=== PATIENT | male | born 1995 | race Caucasian/White ===

== ENCOUNTER 2020-07-16 08:48 | Emergency (ER) | payer SELFPAY ==
[2020-07-16 08:51] VITALS: BP 155/115; PULSE 110; RESP 18; TEMP 36.6; O2SAT 97; BMI 19.0
--- NOTE | 2020-07-16 08:53 | ED_ITS ---
HPI - Psych General: Chief Complaint: Psychiatric Symptoms Stated Complaint: MHE Time Seen by Provider: 07/16/20 08:52 History of Present Illness: HPI Narrative: 24 yo male presents emergency room with EMS and [facility] [place]. Patient was behaving erratically running around in traffic he was licking vehicles he admits to having done meth within the last couple of days including last night. Both a police communications operator and the mother signed affidavits neither affidavit explicitly site any homicidal or suicidal ideation there is an offhand mention by the mother but patient denies any active suicidal homicidal ideation he is awake and alert he recalls most of what is happened he understands that the behavior is mediated by his drug use. He was running after people complaining that there were items missing or actually in his room. His mother's made a comment in her affidavit about him carrying some knives please officer did not make that comment either in person or on his affidavit. Patient repeatedly denies any suicidal or homicidal ideation. His mother and the police allude to some hallucinations he had while he was under the influence of methamphetamines he is not having any of those hallucinations now in the emergency room. MD complaint: altered mental status (Secondary to methamphetamine use) Onset (ago): hour(s) Duration: intermittent History of same: Yes Relieving factors: none Exacerbating factors: none Context: recent drug abuse Associated psychiatric symptoms: racing thoughts, auditory hallucinations and visual hallucinations Associated symptoms: Reports auditory hallucinations (Resolved) and visual hallucinations (Resolved); Deny homicidal ideation or suicidal ideation Treatments prior to arrival: none Review of Systems Const: Denies: fever(s), chills, body aches, change in appetite, fatigue or malaise ENMT: Denies: throat pain, ear or mastoid pain, nasal discharge or nasal congestion Card: Denies: chest pain, edema, dyspnea on exertion or orthopnea Resp: Denies: dyspnea, productive cough or non-productive cough GI: Denies: abdominal pain, nausea, vomiting, hematemesis, coffee ground emesis, diarrhea, constipation, bloating, hematochezia or melena : Denies: flank pain, dysuria, urinary frequency or urinary urgency Skin/Breast: Denies: rash or pruritus Psych: Reports: visual hallucinations (Resolved) and auditory hallucinations (Resolved); Denies: suicidal ideation or homicidal ideation [facility] ED PFSH: Medical History Anxiety, generalized Epilepsy Seasonal allergic rhinitis due to pollen Surgical History Hx of tonsillectomy Family History Father Seizure disorder Hypertension Denies family history of Cancer Social History Smoking and tobacco status: current some day smoker Second hand smoke exposure: Yes Smoking risk assessment/counseling performed?: Yes Alcohol intake: current Alcohol intake frequency: holidays/special occasions only Desire information about alcohol rehabilitation?: No Counseling given: No Substance/Drug Use: current Substance/Drug use type: Amphetamines Desire information about substance/drug rehabilitation?: No Counseling given: No Adopted: No Caregiver/support person: No Lives independently: Yes Household members: family Housing: House Marital status: Single Number of children: 0 service: No Current occupational status: unemployed History of recent travel: No Current gender identity: Male Physical Exam Const: COMMON NORMALS: no acute distress GENERAL APPEARANCE: cooperative and comfortable ORIENTATION/CONSCIOUSNESS: Yes awake, Yes oriented to person, Yes oriented to place and Yes oriented to time HENMT: COMMON NORMALS: normocephalic, atraumatic and hearing grossly normal bilaterally HEAD & SCALP: normocephalic and atraumatic Eye: COMMON NORMALS: Equal, round and reactive pupils present, EOMs intact bilaterally, conjunctivae normal and no scleral icterus CONJUNCTIVA: Yes conjunctivae normal PUPIL: Yes Equal, round and reactive pupils present Neck/C-Spine: COMMON NORMALS: full ROM, no lymphadenopathy, supple and no JVD Lymph: LYMPHATIC: no lymphadenopathy noted and no lymphedema noted Resp: COMMON NORMALS: normal respiratory effort, No retractions, No use of accessory muscles and clear to auscultation bilaterally AUSCULTATION: clear to auscultation bilaterally Cardio: COMMON NORMALS: no JVD, regular rate, regular rhythm and No murmurs present (Cardio) RATE: regular rate RHYTHM: regular rhythm GI: COMMON NORMALS: Soft to palpation and No hepatosplenomegaly present AUSCULTATION: Yes normoactive bowel sounds PALPATION: Yes Soft to palpation, No Tenderness to palpation present (GI), No Guarding due to palpation present (GI) and Yes No hepatosplenomegaly present Extremity: COMMON NORMALS: normal to inspection, capillary refill normal, no clubbing, cyanosis or edema, no calf tenderness and no pedal edema Neuro: SENSORIUM/ORIENTATION: Yes oriented to person, Yes oriented to place and Yes oriented to time Skin: COMMON NORMALS: no rashes or lesions noted GENERAL SKIN EXAM: no rashes or lesions noted MDM - Psych MDM Narrative: Medical decision making narrative: Urine drug screen shows multiple substances of abuse present in urine. At this time the patient has no suicidal or homicidal ideation is behaving rationally and his hallucinations and other behavioral issues are driven by his drug use there is no benefit to placing him in the neuropsychiatric unit discussed Dr. naik, will discharge home. Dr. Naik came to see the patient in the emergency room see his consultation note he agrees with discharge home Lab Data: Labs: Lab Results 07/16/20 07/16/20 07/16/20 Range/Units 09:19 09:19 09:30 WBC 9.8 (4.0-10.0) 10^3/ uL RBC 5.50 H (4.1-5.3) 10^6/u L Hgb 16.3 (11.7-16.6) g/dL Hct 47.4 (42.0-52.0) % MCV 86.2 (80-94) fL MCH 29.6 (28.0-34.0) pg MCHC 34.4 (30.0-36.0) g/dL RDW 11.4 L (12.1-15.1) % Plt Count 296 (130-400) 10^3/c mm MPV 9.4 (7.4-10.4) fL Neut % (Auto) 67.8 % Lymph % (Auto) 22.9 % [place] % (Auto) 7.6 % Eos % (Auto) 1.0 % Baso % (Auto) 0.5 % Neut # (Auto) 6.63 (1.8-7.7) 10^3/u L Lymph # (Auto) 2.2 (0.8-4.8) 10^3/u L [place] # (Auto) 0.7 (0.2-0.9) 10^3/u L Eos # (Auto) 0.1 (0.0-0.8) 10^3/u L Baso # (Auto) 0.1 (0.0-0.1) 10^3/u L Nucleated RBC % (a uto) 0 % Nucleated RBCs # 0.0 /100WBC Sodium (136-145) mmol/L Potassium (3.5-5.1) mmol/L Chloride (98-107) mmol/L Carbon Dioxide (22-29) mmol/L Anion Gap (5-19) BUN (6-20) mg/dL Creatinine (0.7-1.2) mg/dL GFR Calculation (90-130) mL/min Glucose (65-115) mg/dL Calculated Osmolal ity (285-295) mOsm/k g Calcium (8.5-10.5) mg/dL Total Bilirubin (0.15-1.2) mg/dL AST (0-40) U/L ALT (0-41) U/L Alkaline Phosphata se (40-130) IU/L Total Protein (6.6-8.7) g/dL Albumin (3.5-5.2) g/dL Globulin (1.3-4.6) g/dL Urine Color Yellow (Yellow) Urine Appearance Sl hazy (CLEAR) Urine pH 5.0 (5-7) Ur Specific Gravit y 1.020 (1.005-1.030) Urine Protein 3+ H (Negative) Urine Glucose (UA) Norm (Normal) Urine Ketones 1+ H (Negative) Urine Blood Neg (Negative) Urine Nitrate Negative (Negative) Urine Bilirubin Neg (NEGATIVE) Urine Urobilinogen Norm (Negative) mg/dL Ur Leukocyte Genet ase Negative (Negative) Urine RBC 0-4 H (0-2) /hpf Urine WBC 0-4 H (0-5) /hpf Ur Squamous Epith Cells 0-4 H (0-5) Amorphous Sediment Not Reportable Urine Bacteria 1+ H (NONE) Hyaline Casts 5-10 H Urine Mucus 3+ Salicylates (3-10) mg/dL Urine Opiates Scre en Negative (Negative) ng/mL Acetaminophen (10-30) ug/mL Ur Barbiturates Sc reen Negative (Negative) ng/mL Ur Phencyclidine S crn Negative (Negative) ng/mL Ur Amphetamines Sc reen Positive H (Negative) ng/mL U Benzodiazepines Scrn Positive H (Negative) ng/mL Urine Cocaine Scre en Negative (Negative) ng/mL U Marijuana (THC) Screen Positive H (Negative) ng/mL Ethyl Alcohol (0-10) mg/dL 07/16/20 Range/Units 09:30 WBC (4.0-10.0) 10^3/ uL RBC (4.1-5.3) 10^6/u L Hgb (11.7-16.6) g/dL Hct (42.0-52.0) % MCV (80-94) fL MCH (28.0-34.0) pg MCHC (30.0-36.0) g/dL RDW (12.1-15.1) % Plt Count (130-400) 10^3/c mm MPV (7.4-10.4) fL Neut % (Auto) % Lymph % (Auto) % [place] % (Auto) % Eos % (Auto) % Baso % (Auto) % Neut # (Auto) (1.8-7.7) 10^3/u L Lymph # (Auto) (0.8-4.8) 10^3/u L [place] # (Auto) (0.2-0.9) 10^3/u L Eos # (Auto) (0.0-0.8) 10^3/u L Baso # (Auto) (0.0-0.1) 10^3/u L Nucleated RBC % (a uto) % Nucleated RBCs # /100WBC Sodium 141 (136-145) mmol/L Potassium 3.9 (3.5-5.1) mmol/L Chloride 98 (98-107) mmol/L Carbon Dioxide 25 (22-29) mmol/L Anion Gap 21.9 H (5-19) BUN 10 (6-20) mg/dL Creatinine 0.8 (0.7-1.2) mg/dL GFR Calculation 119.8 (90-130) mL/min Glucose 98 (65-115) mg/dL Calculated Osmolal ity 288 (285-295) mOsm/k g Calcium 9.9 (8.5-10.5) mg/dL Total Bilirubin 0.9 (0.15-1.2) mg/dL AST 17 (0-40) U/L ALT 13 (0-41) U/L Alkaline Phosphata se 70 (40-130) IU/L Total Protein 8.2 (6.6-8.7) g/dL Albumin 5.4 H (3.5-5.2) g/dL Globulin 2.8 (1.3-4.6) g/dL Urine Color (Yellow) Urine Appearance (CLEAR) Urine pH (5-7) Ur Specific Gravit y (1.005-1.030) Urine Protein (Negative) Urine Glucose (UA) (Normal) Urine Ketones (Negative) Urine Blood (Negative) Urine Nitrate (Negative) Urine Bilirubin (NEGATIVE) Urine Urobilinogen (Negative) mg/dL Ur Leukocyte Genet ase (Negative) Urine RBC (0-2) /hpf Urine WBC (0-5) /hpf Ur Squamous Epith Cells (0-5) Amorphous Sediment Urine Bacteria (NONE) Hyaline Casts Urine Mucus Salicylates < 0.3 L (3-10) mg/dL Urine Opiates Scre en (Negative) ng/mL Acetaminophen < 5.0 L (10-30) ug/mL Ur Barbiturates Sc reen (Negative) ng/mL Ur Phencyclidine S crn (Negative) ng/mL Ur Amphetamines Sc reen (Negative) ng/mL U Benzodiazepines Scrn (Negative) ng/mL Urine Cocaine Scre en (Negative) ng/mL U Marijuana (THC) Screen (Negative) ng/mL Ethyl Alcohol < 10 (0-10) mg/dL Discharge Plan Discharge Patient Disposition: Home Clinical Impression: Drug-induced psychotic disorder Condition: Stable Prescriptions: No Action levetiracetam [Keppra] 1,000 mg tablet 500 mg PO Q12H Qty: 30 RF: 2 clonazepam [Klonopin] 1 mg tablet 1 mg PO BID Qty: 60 RF: 2 Tylenol Extra Strength 500 mg Tablet 1,000 mg PO PRN RF: 0 Advil 200 mg Tablet 200 - 400 mg PO PRN RF: 0 Discharge Orders: Discharge Order (Routine); Ordered 07/16/20 Ordered By: Koko Armijo Referrals: Neena Pablo FNP [Primary Care Provider] - Discharge Date/Time: 07/16/20 11:33 Coding Level of Care Code ED Polysom Tech for Chg Fwd Exam Comprehensive
[2020-07-16 09:03] VITALS: O2SAT 97
[2020-07-16 09:37] LABS: Basophils # 0.1 10^3/uL (0.0-0.1); Basophils % 0.5 %; Eosinophils # 0.1 10^3/uL (0.0-0.8); Hematocrit 47.4 % (42.0-52.0); Hemoglobin 16.3 g/dL (11.7-16.6); Lymphocytes # 2.2 10^3/uL (0.8-4.8); Lymphocytes % 22.9 %; Mean Corpuscular HGB Conc 34.4 g/dL (30.0-36.0); Mean Corpuscular Hemoglobin 29.6 pg (28.0-34.0); Mean Corpuscular Volume 86.2 fL (80-94); Mean Platelet Volume 9.4 fL (7.4-10.4); Monocytes # 0.7 10^3/uL (0.2-0.9); Monocytes % 7.6 %; Neutrophils # 6.63 10^3/uL (1.8-7.7); Neutrophils % 67.8 %; Nucleated Red Blood Cells % 0 %; Platelet Count 296 10^3/cmm (130-400); Red Cell Distribution Width 11.4 % (12.1-15.1); White Blood Count 9.8 10^3/uL (4.0-10.0)
[2020-07-16 09:40] LABS: Bilirubin Urine Neg (NEGATIVE); Blood Urine Neg (Negative); Glucose Urine UA Norm (Normal); Ketones Urine 1+ (Negative); Leukocyte Esterase Urine Negative (Negative); Nitrate Urine Negative (Negative); Protein Urine 3+ (Negative); Urine Appearance SL Hazy (CLEAR); Urine Color Yellow (Yellow); Urobilinogen Urine Norm (Negative)
[2020-07-16 09:41] LABS: Add Urine Culture? No; Add Urine Microscopic? YES; Bacteria Urine 1+; Mucus Urine 3+; RBC Urine 0-4 /hpf (0-2); Squamous Epithelial Cell Urine 0-4 (0-5); WBC Urine 0-4 /hpf (0-5)
[2020-07-16 09:43] LABS: Amphetamines Screen Urine Positive (Negative); Barbiturates Screen Urine Negative (Negative); Benzodiazepines Screen Urine Positive (Negative); Cocaine Screen Urine Negative (Negative); Opiate Screen Urine Negative (Negative); PCP Screen Urine Negative (Negative); THC Screen Urine Positive (Negative)
[2020-07-16 10:05] LABS: Alanine Aminotransferase 13 U/L (0-41); Albumin Level 5.4 g/dL (3.5-5.2); Alkaline Phosphatase 70 IU/L (40-130); Anion Gap 21.9 (5-19); Aspartate Amino Transferase 17 U/L (0-40); Blood Urea Nitrogen 10 mg/dL (6-20); Calcium 9.9 mg/dL (8.5-10.5); Carbon Dioxide 25 mmol/L (22-29); Chloride 98 mmol/L (98-107); Globulin 2.8 g/dL (1.3-4.6); Glomerular Filtration Rate 119.8 mL/min (90-130); Glucose 98 mg/dL (65-115); Osmolality Calculated 288 mOsm/kg (285-295); Potassium 3.9 mmol/L (3.5-5.1); Sodium 141 mmol/L (136-145); Total Bilirubin 0.9 mg/dL (0.15-1.2); Total Protein 8.2 g/dL (6.6-8.7)
[2020-07-16 10:07] LABS: Acetaminophen < 5.0 ug/mL (10-30); Alcohol Level < 10 mg/dL (0-10); Salicylate < 0.3 mg/dL (3-10)
--- NOTE | 2020-07-16 11:07 | PC.NURSE ---
psychiatrist (Dr. Flores) in room to assess pt at this time. pt's behavior remains calm and cooperative at this time
== END 2020-07-16 11:33 | disposition home or self-care (01) ==
PROVIDERS: Emergency Provider Family Medicine; PCP Nurse Practitioner Family
DX: F19.959 Other psychoactive substance use, unspecified with psychoactive substance-induced psychotic disorder, unspecified (principal); F17.210 Nicotine dependence, cigarettes, uncomplicated
CPT/HCPCS: 12345; 36415; 80053; 80306; 80307; 81001; 85025; 99284

== ENCOUNTER → 2020-07-23 13:16 | Outpatient (BNVA) | payer SELFPAY | PROVIDERS: Family Provider Nurse Practitioner Family; PCP Nurse Practitioner Family; Visit Provider Specialist | DX: F41.1 Generalized anxiety disorder (principal); G40.309 Generalized idiopathic epilepsy and epileptic syndromes, not intractable, without status epilepticus; F19.10 Other psychoactive substance abuse, uncomplicated; F17.210 Nicotine dependence, cigarettes, uncomplicated | CPT/HCPCS: 99215 ==

== ENCOUNTER → 2020-10-01 15:10 | Outpatient (BNVA) | payer SELFPAY | PROVIDERS: Family Provider Nurse Practitioner Family; PCP Nurse Practitioner Family; Visit Provider Specialist | DX: R56.9 Unspecified convulsions (principal); F41.9 Anxiety disorder, unspecified; F17.210 Nicotine dependence, cigarettes, uncomplicated | CPT/HCPCS: 99213 ==

== ENCOUNTER 2020-11-26 16:24 | Inpatient (IN) | payer SELFPAY ==
[2020-11-26 16:28] VITALS: BP 168/122; PULSE 122; RESP 18; TEMP 36.4; O2SAT 98; BMI 21.7
[2020-11-26 17:28] LABS: Basophils % 0.3 %; Eosinophils % 0.3 %; Hematocrit 49.4 % (42.0-52.0); Hemoglobin 16.5 g/dL (11.7-16.6); Lymphocytes # 1.5 10^3/uL (0.8-4.8); Lymphocytes % 17.6 %; Mean Corpuscular HGB Conc 33.4 g/dL (30.0-36.0); Mean Corpuscular Hemoglobin 30.4 pg (28.0-34.0); Mean Corpuscular Volume 91.1 fL (80-94); Mean Platelet Volume 9.3 fL (7.4-10.4); Monocytes # 0.7 10^3/uL (0.2-0.9); Monocytes % 7.5 %; Neutrophils # 6.48 10^3/uL (1.8-7.7); Neutrophils % 74.1 %; Nucleated Red Blood Cells % 0 %; Platelet Count 258 10^3/cmm (130-400); Red Blood Count 5.42 10^6/uL (4.1-5.3); Red Cell Distribution Width 12.1 % (12.1-15.1); White Blood Count 8.8 10^3/uL (4.0-10.0)
[2020-11-26 17:37] LABS: Add Urine Microscopic? NO
[2020-11-26 17:41] LABS: Bilirubin Urine Neg (Negative); Blood Urine Neg (Negative); Glucose Urine UA Norm (Normal); Ketones Urine Negative (Negative); Leukocyte Esterase Urine Negative (Negative); Nitrate Urine Negative (Negative); Protein Urine Neg (Negative); Sulfosalicylic Acid Urine Negative (Negative); Urine Appearance Clear (CLEAR); Urine Color Straw (Yellow); Urobilinogen Urine Norm (Negative); pH Urine 8 (5-7)
[2020-11-26 17:48] LABS: Amphetamines Screen Urine Positive (Negative); Barbiturates Screen Urine Negative (Negative); Benzodiazepines Screen Urine Positive (Negative); Cocaine Screen Urine Negative (Negative); Opiate Screen Urine Positive (Negative); PCP Screen Urine Negative (Negative); THC Screen Urine Positive (Negative)
[2020-11-26] MEDS: LORazepam 2 mg Tablet PO (18:03)
[2020-11-26 18:05] LABS: Acetaminophen < 5.0 ug/mL (10-30); Alanine Aminotransferase 14 U/L (0-41); Alcohol Level < 10 mg/dL (0-10); Alkaline Phosphatase 61 IU/L (40-130); Anion Gap 14.2 (5-19); Aspartate Amino Transferase 20 U/L (0-40); Blood Urea Nitrogen 5 mg/dL (6-20); Calcium 10.8 mg/dL (8.5-10.5); Carbon Dioxide 30 mmol/L (22-29); Chloride 99 mmol/L (98-107); Globulin 2.4 g/dL (1.3-4.6); Glomerular Filtration Rate 138.6 mL/min (90-130); Glucose 110 mg/dL (65-115); Osmolality Calculated 286 mOsm/kg (285-295); Potassium 4.2 mmol/L (3.5-5.1); Salicylate < 0.3 mg/dL (3-10); Sodium 139 mmol/L (136-145); Total Bilirubin 0.5 mg/dL (0.15-1.2); Total Protein 7.4 g/dL (6.6-8.7)
[2020-11-26 18:15] VITALS: BP 153/95; PULSE 116; RESP 18; O2SAT 96
--- NOTE | 2020-11-26 18:22 | PC.NURSE ---
Does not need a 1:1 sitter
[2020-11-26 18:45] VITALS: BP 124/89; PULSE 103; RESP 20; TEMP 36.3; O2SAT 97
--- NOTE | 2020-11-26 21:23 | ED_ITS ---
HPI - Psych General: Chief Complaint: Psychiatric Symptoms Stated Complaint: wants to detox Time Seen by Provider: 11/26/20 16:28 Source: patient and family Mode of arrival: ambulatory History of Present Illness: HPI Narrative: The patient is a 25-year-old male who states that he has been abusing illicit drugs for many years. He uses methamphetamines, abuses prescription opioids. He is feeling bad about it, is tearful and says he would like some help with assistance to quitting. His mother also called 9 said that the patient has auditory hallucinations she says even when he is not using drugs. He denies SI or HI. complaint: feels depressed Duration: intermittent Exacerbating factors: drug use Context: recent drug abuse Associated psychiatric symptoms: auditory hallucinations Associated symptoms: Reports auditory hallucinations and depression; Deny visual hallucinations, delusions, homicidal ideation, suicidal ideation or racing thoughts Treatments prior to arrival: none Review of Systems General: Reports: 10 or more systems reviewed and unremarkable except in HPI and below Const: Denies: fever(s), chills or body aches Eyes: Denies: change in vision or blurry vision ENMT: Denies: throat pain, enlarged tonsils, odynophagia, hoarseness, mouth pain or swelling of lips/tongue Card: Denies: palpitations, irregular heart rhythm, edema or swelling of feet/ankles Resp: Denies: dyspnea, productive cough or non-productive cough GI: Denies: abdominal pain, nausea or vomiting : Denies: flank pain, dysuria, urinary frequency, urinary urgency or urinary hesitancy Musc: Denies: neck pain, back pain or extremity swelling Skin/Breast: Denies: rash, pruritus or erythema Neuro: Denies: headache(s), numbness in extremities or weakness in extremities Psych: Reports: depression and auditory hallucinations; Denies: visual hallucinations, suicidal ideation or homicidal ideation Endo: Denies: polyuria, polydipsia or tired all the time PFSH ED PFSH: Medical History (Updated 11/26/20 @ 21:39 by Trino Guillaume MD, [facility] [place] [facility] [place] Anxiety, generalized Epilepsy Seasonal allergic rhinitis due to pollen Surgical History (Reviewed 11/26/20 @ 21:35 by Trino Guillaume MD, [facility] [place] [facility] [place] Hx of tonsillectomy Family History (Reviewed 11/26/20 @ 21:35 by Trino Guillaume MD, [facility] [place] [facility] [place] Father Seizure disorder Hypertension Denies family history of Cancer Social History (Reviewed 11/26/20 @ 21:35 by Trino Guillaume MD, [facility] [place] [facility] [place] Smoking and tobacco status: current some day smoker Second hand smoke exposure: Yes Smoking risk assessment/counseling performed?: Yes Alcohol intake: current Alcohol intake frequency: holidays/special occasions only Desire information about alcohol rehabilitation?: No Counseling given: No Desire information about substance/drug rehabilitation?: No Counseling given: No Adopted: No Caregiver/support person: No Lives independently: Yes Household members: family Housing: House Marital status: Single Number of children: 0 service: No Current occupational status: unemployed History of recent travel: No Current gender identity: Male Physical Exam Const: COMMON NORMALS: no acute distress, average body habitus, patient oriented x3, no limitations, healthy appearing, alert and well nourished HENMT: COMMON NORMALS: normocephalic, atraumatic and moist oral mucous membranes HEAD & SCALP: normocephalic and atraumatic Neck/C-Spine: COMMON NORMALS: no meningeal signs and no JVD Resp: COMMON NORMALS: normal respiratory effort, No retractions, No use of accessory muscles, clear to auscultation bilaterally and percussion normal AUSCULTATION: clear to auscultation bilaterally PERCUSSION: percussion normal Cardio: COMMON NORMALS: no JVD, regular rate, regular rhythm, S1 normal heart sound present, S2 normal heart sound present, No gallops present (Cardio), No clicks present (Cardio), No murmurs present (Cardio), No rub (Cardio) and Peripheral pulses 2+ throughout RATE: regular rate RHYTHM: regular rhythm HEART SOUNDS: S1 normal heart sound present and S2 normal heart sound present PERIPHERAL PULSES: Peripheral pulses 2+ throughout GI: COMMON NORMALS: Normal to inspection, nondistended, normoactive bowel sounds present, Soft to palpation, non-tender, No hepatosplenomegaly present, no masses and no bruits PALPATION: Yes Soft to palpation and Yes No hepatosplenomegaly present Extremity: COMMON NORMALS: normal to inspection, full ROM, capillary refill normal, no calf tenderness and no pedal edema Neuro: COMMON NORMALS: patient oriented x3 SENSORIUM/ORIENTATION: Yes alert MENINGEAL SIGNS: Yes no meningeal signs Psych: COMMON NORMALS: Normal thought process present, speech normal, denies homicidal ideation and denies suicidal ideation SPEECH: Yes normal speech MOOD & AFFECT: Yes depressed mood and Yes tearful THOUGHT PROCESS: Normal thought process present THOUGHT CONTENT: No delusions Skin: COMMON NORMALS: no rashes or lesions noted, no wounds, turgor normal, no jaundice, no petechiae and no mottling GENERAL SKIN EXAM: no rashes or lesions noted and turgor normal MDM - Psych MDM Narrative: Medical decision making narrative: 25-year-old male with a history of polysubstance abuse and has some auditory hallucinations. He would like assistance to help with, however because of his hallucinations he is admitted to the neuropsychiatric unit for further evaluation and management. Medical Records: Attestation: I reviewed the patient's medical records. Lab Data: Attestation: I reviewed the patient's lab results. Labs: Lab Results 11/26/20 11/26/20 11/26/20 Range/Units 17:19 17:19 17:26 WBC 8.8 (4.0-10.0) 10^3/ uL RBC 5.42 H (4.1-5.3) 10^6/u L Hgb 16.5 (11.7-16.6) g/dL Hct 49.4 (42.0-52.0) % MCV 91.1 (80-94) fL MCH 30.4 (28.0-34.0) pg MCHC 33.4 (30.0-36.0) g/dL RDW 12.1 (12.1-15.1) % Plt Count 258 (130-400) 10^3/c mm MPV 9.3 (7.4-10.4) fL Neut % (Auto) 74.1 % Lymph % (Auto) 17.6 % [place] % (Auto) 7.5 % Eos % (Auto) 0.3 % Baso % (Auto) 0.3 % Neut # (Auto) 6.48 (1.8-7.7) 10^3/u L Lymph # (Auto) 1.5 (0.8-4.8) 10^3/u L [place] # (Auto) 0.7 (0.2-0.9) 10^3/u L Eos # (Auto) 0.0 (0.0-0.8) 10^3/u L Baso # (Auto) 0.0 (0.0-0.1) 10^3/u L Nucleated RBC % (a uto) 0 % Nucleated RBCs # 0.0 /100WBC Sodium 139 (136-145) mmol/L Potassium 4.2 (3.5-5.1) mmol/L Chloride 99 (98-107) mmol/L Carbon Dioxide 30 H (22-29) mmol/L Anion Gap 14.2 (5-19) BUN 5 L (6-20) mg/dL Creatinine 0.7 (0.7-1.2) mg/dL GFR Calculation 138.6 H (90-130) mL/min Glucose 110 (65-115) mg/dL Calculated Osmolal ity 286 (285-295) mOsm/k g Calcium 10.8 H (8.5-10.5) mg/dL Total Bilirubin 0.5 (0.15-1.2) mg/dL AST 20 (0-40) U/L ALT 14 (0-41) U/L Alkaline Phosphata se 61 (40-130) IU/L Total Protein 7.4 (6.6-8.7) g/dL Albumin 5.0 (3.5-5.2) g/dL Globulin 2.4 (1.3-4.6) g/dL Urine Color Straw (Yellow) Urine Appearance Clear (CLEAR) Urine pH 8 H (5-7) Ur Specific Gravit y 1.010 (1.005-1.030) Urine Protein Neg (Negative) Urine Glucose (UA) Norm (Normal) Urine Ketones Negative (Negative) Urine Blood Neg (Negative) Urine Nitrate Negative (Negative) Urine Bilirubin Neg (Negative) Prot Sulfosalicyli c Acd Negative (Negative) Urine Urobilinogen Norm (Negative) mg/dL Ur Leukocyte Genet ase Negative (Negative) Salicylates < 0.3 L (3-10) mg/dL Urine Opiates Scre en (Negative) ng/mL Acetaminophen < 5.0 L (10-30) ug/mL Ur Barbiturates Sc reen (Negative) ng/mL Ur Phencyclidine S crn (Negative) ng/mL Ur Amphetamines Sc reen (Negative) ng/mL U Benzodiazepines Scrn (Negative) ng/mL Urine Cocaine Scre en (Negative) ng/mL U Marijuana (THC) Screen (Negative) ng/mL Ethyl Alcohol < 10 (0-10) mg/dL 11/26/20 Range/Units 17:26 WBC (4.0-10.0) 10^3/ uL RBC (4.1-5.3) 10^6/u L Hgb (11.7-16.6) g/dL Hct (42.0-52.0) % MCV (80-94) fL MCH (28.0-34.0) pg MCHC (30.0-36.0) g/dL RDW (12.1-15.1) % Plt Count (130-400) 10^3/c mm MPV (7.4-10.4) fL Neut % (Auto) % Lymph % (Auto) % [place] % (Auto) % Eos % (Auto) % Baso % (Auto) % Neut # (Auto) (1.8-7.7) 10^3/u L Lymph # (Auto) (0.8-4.8) 10^3/u L [place] # (Auto) (0.2-0.9) 10^3/u L Eos # (Auto) (0.0-0.8) 10^3/u L Baso # (Auto) (0.0-0.1) 10^3/u L Nucleated RBC % (a uto) % Nucleated RBCs # /100WBC Sodium (136-145) mmol/L Potassium (3.5-5.1) mmol/L Chloride (98-107) mmol/L Carbon Dioxide (22-29) mmol/L Anion Gap (5-19) BUN (6-20) mg/dL Creatinine (0.7-1.2) mg/dL GFR Calculation (90-130) mL/min Glucose (65-115) mg/dL Calculated Osmolal ity (285-295) mOsm/k g Calcium (8.5-10.5) mg/dL Total Bilirubin (0.15-1.2) mg/dL AST (0-40) U/L ALT (0-41) U/L Alkaline Phosphata se (40-130) IU/L Total Protein (6.6-8.7) g/dL Albumin (3.5-5.2) g/dL Globulin (1.3-4.6) g/dL Urine Color (Yellow) Urine Appearance (CLEAR) Urine pH (5-7) Ur Specific Gravit y (1.005-1.030) Urine Protein (Negative) Urine Glucose (UA) (Normal) Urine Ketones (Negative) Urine Blood (Negative) Urine Nitrate (Negative) Urine Bilirubin (Negative) Prot Sulfosalicyli c Acd (Negative) Urine Urobilinogen (Negative) mg/dL Ur Leukocyte Genet ase (Negative) Salicylates (3-10) mg/dL Urine Opiates Scre en Positive H (Negative) ng/mL Acetaminophen (10-30) ug/mL Ur Barbiturates Sc reen Negative (Negative) ng/mL Ur Phencyclidine S crn Negative (Negative) ng/mL Ur Amphetamines Sc reen Positive H (Negative) ng/mL U Benzodiazepines Scrn Positive H (Negative) ng/mL Urine Cocaine Scre en Negative (Negative) ng/mL U Marijuana (THC) Screen Positive H (Negative) ng/mL Ethyl Alcohol (0-10) mg/dL Discharge Plan Discharge Patient Disposition: Admitted As Inpatient Admit Provider: Bassam Zaragoza Clinical Impression: Drug-induced psychotic disorder, Polysubstance abuse Condition: Stable Coding Level of Care Code ED Homemaker Companion for Munira Deal Exam Problem Focused
[2020-11-26 21:27] VITALS: BP 124/89; PULSE 103; RESP 20; TEMP 36.3; O2SAT 97
[2020-11-26] MEDS: hyDROXYzine 25 mg Capsule 50 MG PO (21:55)
[2020-11-26] MEDS: trazodone 50 mg Tablet PO (21:55)
[2020-11-26] MEDS: OLANZapine 5 mg ODT PO (22:30)
--- NOTE | 2020-11-26 22:35 | PC.NURSE ---
patient is pacing halls and beginning to get more agitated / anxious. Zyprexa 5 mg given.
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
[2020-11-26 23:47] VITALS: BP 124/89; PULSE 103; RESP 20; TEMP 36.3; O2SAT 97
[2020-11-27] MEDS: haloperidol 5 mg Tablet PO (01:05)
--- NOTE | 2020-11-27 01:06 | PC.NURSE ---
Patient continues to feel very anxious / agitated. Pacing gordon from dayroom, to nurses station to patient room, to hallway. continues to be somewhat disoriented at times confused. Haldol 5mg given.
[2020-11-27 01:35] LABS: Valproic Acid Level 94.9 ug/mL (50-100)
[2020-11-27 06:00] VITALS: RESP 18; TEMP 36.3
[2020-11-27] MEDS: citalopram 20 mg Tablet PO (08:38)
[2020-11-27] MEDS: ALPRAZolam 0.25 mg Tablet PO ×3 (08:38→21:03)
[2020-11-27] MEDS: fluoxetine 20 mg Capsule PO (13:52)
[2020-11-27 14:00] VITALS: BP 126/86; PULSE 107; RESP 20; TEMP 36.2; O2SAT 96
[2020-11-27] MEDS: divalproex DR 500 mg Tablet PO ×2 (14:45→21:04)
--- NOTE | 2020-11-27 15:16 | P.HP_ITS ---
Providers/Chief Complaint Admitting Physician: Bassam Zaragoza MD Chief Complaint: SI HPI NPU History of Present Illness José Manuel Nolasco is a 25 year old male who presented to the emergency department with the following report: Chief Complaint: Psychiatric Symptoms Stated Complaint: wants to detox Time Seen by Provider: 11/26/20 16:28 Source: patient and family Mode of arrival: ambulatory History of Present Illness: HPI Narrative: The patient is a 25-year-old male who states that he has been abusing illicit drugs for many years. He uses methamphetamines, abuses prescription opioids. He is feeling bad about it, is tearful and says he would like some help with assistance to quitting. His mother also called 9 said that the patient has auditory hallucinations she says even when he is not using drugs. He denies SI or HI. MD complaint: feels depressed Duration: intermittent Exacerbating factors: drug use Context: recent drug abuse Associated psychiatric symptoms: auditory hallucinations Associated symptoms: Reports auditory hallucinations and depression; Deny visual hallucinations, delusions, homicidal ideation, suicidal ideation or racing thoughts Treatments prior to arrival: none. He was admitted to the neuropsychiatric unit for definitive treatment of those issues. José Manuel presents today reporting that he has 1 previous hospitalization in [place] some years ago and reports that he went to follow-up outpatient maybe 1 or 2 times before leaving the area. He reports having 1 suicide attempt in his past attempting to slit his wrists. He reports he smokes about 1/2 to 1 pack of cigarettes a day, does not drink alcohol, has marijuana sometimes daily and struggles with methamphetamine. He reports he went to a makeshift rehab where a family member/family friend took him in in a remote area and they assisted him in getting clean by not allowing him to leave and providing for him until he got through the rough part. He is not sure whether he had a DUI. He reports he presents off of his medication and wanting to get clean and sober. He reports he has had suicidal thoughts recently and struggles with depression and anxiety. He reports sometimes getting Xanax to help with the anxiety. We discussed concerns about Xanax related to recovery. We discussed the risk benefits and alternatives of restarting Zyprexa which he is certain he was taken before with success as well as starting Prozac as an antidepressant/anxiety medication long-term and he understood and agreed to proceed as is documented in this note. Psychiatric history: As above. Substance abuse history: As above. Family history: He endorses mental health issues on both sides of the family as well as addiction up suddenly but denies any suicide attempts or completions in his family. Developmental history: He denies any issues with his , his mother's with him or delivery. To walk and talk and met his developmental milestones on time, he did not need speech therapy, emotional support or special education classes but did report he did have some assistance with reading after he went off to school. Psychosocial history: He reports his parents were together when he was born and he has 2 younger sisters who are a product of that same union. Neither of his parents have ob struction. He reports his childhood was easy and is on time and sports. He denies emotional, physical or sexual abuse. Highest grade he attained in school was the 11th grade and he never got his GED. He endorses being a heterosexual longest relationship being 3 years. He is , he is never had biological children, is never been in the but does endorse being a Confucianism. 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 He was a current lives in a house with his mom and one of them. Legal history: He reports being [facility] about 3 times when is lying about a week. Medical history: He reports a history of epilepsy and has been seen by Dr. Maida Green. Meds NPU Home Medications Medication Instructions Recorded Confirmed Last Taken Type ibuprofen [Advil] 200 - 400 mg PO PRN PRN 07/16/20 11/26/20 Unknown History alprazolam 0.25 mg tablet 0.25 mg PO TID #21 tab 10/01/20 11/26/20 10/28/20 Rx citalopram 20 mg PO DAILY@1000 11/26/20 11/26/20 11/10/20 History divalproex [Depakote] 500 mg PO BID@1000,2200 11/26/20 11/26/20 11/26/20 17:00 History Allergies Allergy/AdvReac Type Severity Reaction Status Date / Time Sulfa (Sulfonamide Allergy ALGY-Hives Verified 11/26/20 16:37 Antibiotics) PFS NPU PFS: Medical History (Updated 11/28/20 @ 06:01 by Bassam Zaragoza MD) Anxiety, generalized Epilepsy Seasonal allergic rhinitis due to pollen Surgical History (Reviewed 11/26/20 @ 21:35 by Trino Guillaume MD, [facility] [place] Hx of tonsillectomy Family History (Reviewed 11/26/20 @ 21:35 by Trino Guillaume MD, [facility] [place] Father Seizure disorder Hypertension Denies family history of Cancer Social History (Reviewed 11/26/20 @ 21:35 by Trino Guillaume MD, [facility] [place] Smoking and tobacco status: current every day smoker Second hand smoke exposure: Yes Smoking risk assessment/counseling performed?: Yes Alcohol intake: current Alcohol intake frequency: holidays/special occasions only Desire information about alcohol rehabilitation?: No Counseling given: No Desire information about substance/drug rehabilitation?: No Counseling given: No Adopted: No Caregiver/support person: No Lives independently: Yes Household members: family Housing: House Marital status: Single Number of children: 0 service: No Current occupational status: unemployed History of recent travel: No Current gender identity: Male Mental Status Exam MSE Comments: This is a well-nourished well-developed white male with hospital scrubs on with limited grooming and eye contact. No abnormal movements except for mild psychomotor retardation. Cooperative with exam in mild distress. Speech was decreased rate and volume with some occasional thought blocking. Mood described as not good, affect confused. Thought process linear/organized mostly with moments of disorganization. Content: Patient denied suicidal or homicidal ideation, there were no delusions reported some paranoia present. He denied auditory visual hallucinations. Attention and concentration were limited and memory appeared reliable but none were formally tested. He is alert and oriented x3. Insight and judgment are limited, impulse control is impaired. Vitals/I&O/Wt Last Vital Signs Temp 97.2 F L 11/27/20 14:00 Pulse 107 H 11/27/20 14:00 Resp 20 H 11/27/20 14:00 BP 126/86 11/27/20 14:00 Pulse Ox 96 11/27/20 14:00 Weight last 48 hrs Weight 72.575 kg Data NPU : 11/26/20 17:19 11/26/20 17:19 A&P Assessment and plan (1) Drug-induced psychotic disorder: Status: Acute Qualifiers: Complication of substance-induced condition: with hallucinations Qualified Code(s): F19.951 - Other psychoactive substance use, unspecified with psychoactive substance-induced psychotic disorder with hallucinations (2) Polysubstance abuse: Status: Acute (3) Generalized epilepsy: Status: Acute (4) Seasonal allergic rhinitis due to pollen: Status: Chronic (5) Anxiety, generalized: Status: Chronic (6) Depressive disorder: Status: Acute (7) Psychosis: Status: Acute Additional A&P Information This 25-year-old white male is a long history of mental health and addiction issues with significant genetic loading for those conditions who presents off of medication and active addiction looking for connection to services and open to restarting his medication. 1. Continue current medication. We will restart Zyprexa 10 mg p.o. q. at bedtime. He was identified that he was previously taking Celexa so we will restart that medication. 2. Continue every 15 minute checks for safety. 3. Encourage individual, group and milieu therapy. 4. Encourage sober living treatment at the highest level of care to which he is willing to commit. 5. Once services established consider discharge tomorrow. Involuntary Hold Information 96 Hour Hold: 96 Hour Involuntary Admission: No Attestations NPU Medical Necessity Statement*: Inpatient hospitalization is medically necessary and the clinically appropriate intervention at this time. We will monitor medications and make changes as indicated. Patient will be in the hospital for over two midnights. Likely length of stay 1-3 additional days. 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
[2020-11-27 20:07] VITALS: BP 101/77; PULSE 104; RESP 17; TEMP 36.8; O2SAT 94
[2020-11-27] MEDS: OLANZapine 10 mg TABLET PO (21:04)
[2020-11-27] MEDS: trazodone 50 mg Tablet PO (21:04)
[2020-11-27] MEDS: hyDROXYzine 25 mg Capsule 50 MG PO (21:05)
[2020-11-28 06:00] VITALS: BP 110/75; PULSE 90; RESP 15; TEMP 36.6; O2SAT 94
[2020-11-28] MEDS: divalproex DR 500 mg Tablet PO (08:35)
[2020-11-28] MEDS: ALPRAZolam 0.25 mg Tablet PO (08:35)
[2020-11-28] MEDS: citalopram 20 mg Tablet PO (08:35)
--- NOTE | 2020-11-28 11:53 | P.DS_ITS ---
Diagnoses at Discharge Discharge Diagnosis (1) Drug-induced psychotic disorder: Status: Acute Qualifiers: Complication of substance-induced condition: with hallucinations Qualified Code(s): F19.951 - Other psychoactive substance use, unspecified with psychoactive substance-induced psychotic disorder with hallucinations (2) Polysubstance abuse: Status: Acute (3) Generalized epilepsy: Status: Acute (4) Seasonal allergic rhinitis due to pollen: Status: Chronic (5) Anxiety, generalized: Status: Chronic (6) Depressive disorder: Status: Acute (7) Psychosis: Status: Acute Reason for Visit Reason for Visit: SI Hospital Course Hospital Course 25-year-old male presented to the emergency department with ongoing, longstanding polysubstance abuse. Most recently using methamphetamines and prescription opioids, reported depressive symptoms and tearful with regards to his ongoing use and need for help. Patient reported recent self-harm behavior in the context of substance use but denied any intent of ending his life. Patient reported some auditory hallucinations in the context of his recent methamphetamine use and was started on olanzapine 10 mg at bedtime after collateral history that the patient has also had some persisting auditory hallucinations when not using substances with concerns for underlying thought disorder. Patient was also started on citalopram 20 mg daily with no reports of any medication side effects. He reported ongoing, intermittent depressive symptoms in the context of his ongoing substance use but denied any depressive symptoms or suicidal ideation at the time of discharge. Patient participate in unit milieu with no reports of any behavioral disturbances. At the time of discharge, patient was not suicidal and did not appear to pose any imminent threat of harm to self or others. Low to moderate risk of harm to self given no current suicidal ideation and no reports of any current psychiatric symptoms although patient's risk may be elevated given recent self-harm behavior in the context of substance use and this risk may be elevated if he continues to abuse substances or alcohol leading to unexpected, impulsive behavior. Risk mitigation included psychiatric hospitalization for observation of return of any suicidal behavior, treating psychiatric symptoms, as well as recommendation to abstain from the use of any substances and alcohol and coordinating for post discharge psychiatric and substance treatment. Patient was able to communicate his understanding of the need to abstain from the use of substances and alcohol as well as the need for compliance with his medication, medication management and substance counseling follow-up in order to further mitigate his risk of harm to self and others.. Involuntary Hold Information 96 Hour Hold: 96 Hour Involuntary Admission: No Mental Status Exam 2 MSE Comments: Appears stated age, unshaven, appropriately dressed, sitting up in bed, calm, cooperative, interactive, good eye contact Psychomotor activity is neither increased nor decreased, no agitation Speech is normal rate and volume, spontaneous, clear articulation, not pressured I feel better, full range of affect, not labile Alert and oriented to person, place, time, situation Memory and concentration appear to be intact per interview Intellectual functioning appears to be average based on vocabulary, interview Thought process, linear, no flight of ideas, no looseness of association Thought content, no delusions, no demonstrated internal preoccupation, no hallucinations, no SI, no HI Insight and judgment appear to be intact Physical Exam Narrative: EXAM NARRATIVE: No changes Discharge Data Vitals: Last Vital Signs Temp 97.9 F 11/28/20 06:00 Pulse 90 11/28/20 06:00 Resp 15 11/28/20 06:00 BP 110/75 11/28/20 06:00 Pulse Ox 94 11/28/20 06:00 Discharge Plan Discharge Patient Disposition: Home Condition: Stable Prescriptions: New olanzapine 10 mg Tablet 10 mg PO BEDTIME Qty: 30 RF: 1 citalopram 20 mg Tablet 20 mg PO DAILY@1000 Qty: 30 RF: 1 Continued ibuprofen [Advil] 200 mg Tablet 200 - 400 mg PO PRN PRN (Reason: pain/headache) RF: 0 divalproex [Depakote] 500 mg tablet,delayed release (DR/EC) 500 mg PO BID@1000,2200 RF: 0 Discontinued alprazolam [Xanax] 0.25 mg tablet 0.25 mg PO TID Qty: 21 RF: 0 No Action citalopram 20 mg tablet 20 mg PO DAILY@1000 RF: 0 Referrals: [facility] [Other] (Held at [facility] Meeting Time: Tuesday, 7pm) [facility] [Outside] (Intake paperwork done while at the hospital. 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
[2020-11-28 12:27] VITALS: BP 110/75; PULSE 90; RESP 15; TEMP 36.6; O2SAT 94
--- NOTE | 2020-11-28 15:29 | PC.RESP ---
Smoking Cessation information sent to patient.
== END 2020-11-28 14:40 | disposition home or self-care (01) | DRG 897 ==
LOC: ER 16:55 → NP 21:39
PROVIDERS: Admitting Provider Psychiatry & Neurology Psychiatry; Emergency Provider Family Medicine; Visit Provider Psychiatry & Neurology Psychiatry
DX: F15.151 Other stimulant abuse with stimulant-induced psychotic disorder with hallucinations (principal); F11.10 Opioid abuse, uncomplicated; F32.9 Major depressive disorder, single episode, unspecified; Z91.5 Personal history of self-harm; F17.210 Nicotine dependence, cigarettes, uncomplicated; F41.1 Generalized anxiety disorder; G40.409 Other generalized epilepsy and epileptic syndromes, not intractable, without status epilepticus
CPT/HCPCS: 12345; 36415; 80053; 80164; 80306; 80307; 81003; 85025; 99284

== ENCOUNTER 2025-02-24 18:29 | Inpatient (IN) | payer SELFPAY ==
[2025-02-24 18:29] VITALS: BP 157/126; PULSE 117; RESP 16; TEMP 36.9; O2SAT 97; BMI 21.7
--- NOTE | 2025-02-24 18:45 | W.ED.PSYCHS ---
HPI - Psych General: Chief Complaint: Psychiatric Symptoms Stated Complaint: mhe Time Seen by Provider: 02/24/25 18:30 Source: patient and EMS Mode of arrival: EMS Limitations: no limitations History of Present Illness: 29-year-old male is here with hallucinations. States that he has been clean off drugs over the last 3 years but states he has been using meth the last 3 days states he has not slept he has been having visual and auditory hallucinations while in the room he is talking to people is not there and has flight of ideas. Associated symptoms: Reports auditory hallucinations and visual hallucinations Related Data Home Medications ?Medication ?Instructions ?Recorded ?Confirmed ibuprofen 200 mg tablet (Advil) 200 - 400 mg PO PRN PRN 07/16/20 11/26/20 pain/headache divalproex 500 mg tablet,delayed 500 mg PO BID@1000,2200 11/26/20 11/26/20 release (Depakote) Previous Rx's ?Medication ?Instructions ?Recorded citalopram 20 mg tablet 20 mg PO DAILY@1000 #30 tabs 11/28/20 olanzapine 10 mg tablet 10 mg PO BEDTIME #30 tabs 11/28/20 Allergies Allergy/AdvReac Type Severity Reaction Status Date / Time Sulfa (Sulfonamide Allergy ALGY-Hives Verified 11/26/20 16:37 Antibiotics) Review of Systems Const: Denies: fever(s), chills, body aches or change in appetite ENMT: Denies: throat pain or dental pain Card: Denies: chest pain Resp: Denies: dyspnea GI: Denies: abdominal pain, nausea, vomiting or diarrhea Musc: Denies: neck pain or back pain Skin/Breast: Denies: rash Neuro: Denies: headache(s) Psych: Reports: visual hallucinations and auditory hallucinations [facility] PFSH: Medical History (Updated 02/24/25 @ 19:18 by Abdullahi Gilman MD) Seasonal allergic rhinitis due to pollen Anxiety, generalized Epilepsy Surgical History Hx of tonsillectomy Family History Father Seizure disorder Hypertension Denies family history of Cancer Social History Smoking and tobacco/nicotine status: current every day tobacco/nicotine user Second hand smoke exposure: Yes Alcohol intake: current Alcohol intake frequency: holidays/special occasions only Substance/Drug Use: current Adopted: No Caregiver/support person: No Lives independently: Yes Household members: family Housing: House Marital status: Single Number of children: 0 service: No Current occupational status: unemployed Do you think of yourself as: Straight/Heterosexual Current gender identity: Male Physical Exam Const: COMMON NORMALS: no acute distress and healthy appearing HENMT: COMMON NORMALS: normocephalic and atraumatic HEAD & SCALP: normocephalic and atraumatic Eye: COMMON NORMALS: conjunctivae normal CONJUNCTIVA: Yes conjunctivae normal Neck/C-Spine: COMMON NORMALS: full ROM and supple Chest: COMMONS NORMALS: normal inspection of the chest Resp: COMMON NORMALS: normal respiratory effort Cardio: RATE: tachycardic Extremity: COMMON NORMALS: normal to inspection and full ROM Neuro: COMMON NORMALS: moves all extremities and no focal motor deficits Psych: THOUGHT CONTENT: Yes Hallucination(s) present and Yes Derealization present Skin: COMMON NORMALS: no rashes or lesions noted and no wounds GENERAL SKIN EXAM: no rashes or lesions noted Course Vital Signs: Vital signs: Vital Signs Temperature 98.4 F 02/24/25 18:29 Pulse Rate 117 H 02/24/25 18:29 Respiratory Rate 16 02/24/25 18:29 Blood Pressure 157/126 02/24/25 18:29 Pulse Oximetry 97 02/24/25 18:29 Oxygen Delivery Me thod Room Air 02/24/25 18:29 MDM - Psych Medical Decision Making Patient presents here with acute psychosis likely from methamphetamine abuse patient placed on 96-hour hold spoke to psychiatrist will admit Medical Records I reviewed the patient's medical records. Lab Data I reviewed the patient's lab results. 02/24/25 18:46 02/24/25 18:46 Laboratory Results WBC 11.62 10^3/uL (3.29-11.43) H 02/24/25 18:46 RBC 5.66 10^6/uL (3.85-5.65) H 02/24/25 18:46 Hgb 16.40 g/dL (11.27-16.99) 02/24/25 18:46 Hct 49.3 % (37-53) 02/24/25 18:46 MCV 87.1 fl (82-101) 02/24/25 18:46 MCH 29.0 pg (27-33) 02/24/25 18:46 MCHC 33.3 g/dL (30-55) 02/24/25 18:46 RDW 11.9 % (12.1-15.1) L 02/24/25 18:46 Plt Count 332 10^3/cmm (157-399) 02/24/25 18:46 MPV 8.8 fL (7.4-10.4) 02/24/25 18:46 Neut % (Auto) 77.7 % 02/24/25 18:46 Lymph % (Auto) 14.9 % 02/24/25 18:46 [place] % (Auto) 6.3 % 02/24/25 18:46 Eos % (Auto) 0.3 % 02/24/25 18:46 Baso % (Auto) 0.6 % 02/24/25 18:46 Neut # (Auto) 9.04 10^3/uL (1.8-7.7) H 02/24/25 18:46 Lymph # (Auto) 1.7 10^3/uL (0.8-4.8) 02/24/25 18:46 [place] # (Auto) 0.7 10^3/uL (0.2-0.9) 02/24/25 18:46 Eos # (Auto) 0.0 10^3/uL (0.0-0.8) 02/24/25 18:46 Baso # (Auto) 0.1 10^3/uL (0.0-0.1) 02/24/25 18:46 Nucleated RBC % (auto) 0 % 02/24/25 18:46 Nucleated RBCs # 0.0 /100WBC 02/24/25 18:46 Sodium 140 mmol/L (136-145) 02/24/25 18:46 Potassium 3.6 mmol/L (3.5-5.1) 02/24/25 18:46 Chloride 101 mmol/L (98-107) 02/24/25 18:46 Carbon Dioxide 25 mmol/L (22-29) 02/24/25 18:46 Anion Gap 17.6 (5-19) 02/24/25 18:46 BUN 10 mg/dL (6-20) 02/24/25 18:46 Creatinine 0.8 mg/dL (0.7-1.2) 02/24/25 18:46 GFR Calculation 115.1 mL/min (90-130) 02/24/25 18:46 Glucose 108 mg/dL (65-115) 02/24/25 18:46 Calculated Osmolality 290 mOsm/kg (285-295) 02/24/25 18:46 Calcium 10.0 mg/dL (8.5-10.5) 02/24/25 18:46 Total Bilirubin 1.0 mg/dL (0.15-1.2) 02/24/25 18:46 AST 15 U/L (0-40) 02/24/25 18:46 ALT 16 U/L (0-41) 02/24/25 18:46 Alkaline Phosphatase 76 U/L (40-130) 02/24/25 18:46 Total Protein 8.1 g/dL (6.6-8.7) 02/24/25 18:46 Albumin 5.2 g/dL (3.5-5.2) 02/24/25 18:46 Globulin 2.9 g/dL (1.3-4.6) 02/24/25 18:46 Salicylates < 0.3 mg/dL (3-10) L 02/24/25 18:46 Acetaminophen < 5.0 ug/mL (10-30) L 02/24/25 18:46 Ethyl Alcohol < 10 mg/dL (0-10) 02/24/25 18:46 No radiology studies performed this visit Discharge Plan Discharge Patient Disposition: Admitted As Inpatient Clinical Impression: Acute psychosis Condition: Stable Prescriptions: No Action ibuprofen [Advil] 200 mg Tablet 200 - 400 mg PO PRN PRN (Reason: pain/headache) divalproex [Depakote] 500 mg tablet,delayed release (DR/EC) 500 mg PO BID@1000,2200 citalopram 20 mg Tablet 20 mg PO DAILY@1000 Qty: 30 1RF olanzapine 10 mg Tablet 10 mg PO BEDTIME Qty: 30 1RF Print Language: Luxembourgish 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
[2025-02-24 18:51] LABS: Basophils # 0.1 10^3/uL (0.0-0.1); Basophils % 0.6 %; Eosinophils % 0.3 %; Hematocrit 49.3 % (37-53); Lymphocytes # 1.7 10^3/uL (0.8-4.8); Lymphocytes % 14.9 %; Mean Corpuscular HGB Conc 33.3 g/dL (30-55); Mean Corpuscular Volume 87.1 fl (82-101); Mean Platelet Volume 8.8 fL (7.4-10.4); Monocytes # 0.7 10^3/uL (0.2-0.9); Monocytes % 6.3 %; Neutrophils # 9.04 10^3/uL (1.8-7.7); Neutrophils % 77.7 %; Nucleated Red Blood Cells % 0 %; Platelet Count 332 10^3/cmm (157-399); Red Blood Count 5.66 10^6/uL (3.85-5.65); Red Cell Distribution Width 11.9 % (12.1-15.1); White Blood Count 11.62 10^3/uL (3.29-11.43)
[2025-02-24 19:09] LABS: Alanine Aminotransferase 16 U/L (0-41); Albumin Level 5.2 g/dL (3.5-5.2); Alkaline Phosphatase 76 U/L (40-130); Anion Gap 17.6 (5-19); Aspartate Amino Transferase 15 U/L (0-40); Blood Urea Nitrogen 10 mg/dL (6-20); Carbon Dioxide 25 mmol/L (22-29); Chloride 101 mmol/L (98-107); Creatinine Clr Calc Pharmacy 146.9806; Globulin 2.9 g/dL (1.3-4.6); Glomerular Filtration Rate 115.1 mL/min (90-130); Glucose 108 mg/dL (65-115); Osmolality Calculated 290 mOsm/kg (285-295); Potassium 3.6 mmol/L (3.5-5.1); Sodium 140 mmol/L (136-145); Total Protein 8.1 g/dL (6.6-8.7)
[2025-02-24 19:10] LABS: Acetaminophen < 5.0 ug/mL (10-30); Alcohol Level < 10 mg/dL (0-10); Salicylate < 0.3 mg/dL (3-10)
--- NOTE | 2025-02-24 20:33 | PC.NURSE ---
96 Hour Hold Pt served with copy of 96 HH by this RN and security. Pt awake and alert. Per 1:1 staff, pt has been talking to imaginary people in the room. Pt pleasant and denies need for further education.
[2025-02-24 21:11] VITALS: BP 164/112; PULSE 91; RESP 16; O2SAT 91
[2025-02-24 21:45] VITALS: BP 148/99; PULSE 114; RESP 18; O2SAT 99
[2025-02-24 22:00] VITALS: BP 148/99; PULSE 114; RESP 18; O2SAT 99
--- NOTE | 2025-02-25 02:24 | PC.ADMIT ---
[age] Y Admission Note: The patient,José Manuel Nolasco,29 y/o, was given written information regarding hospital policies, unit procedures and contact persons. Patient's smoking status: current every day smoker. Vital Signs - 8 hr 02/24/25 18:29 02/24/25 21:11 02/24/25 21:45 Temperature 98.4 F Pulse Rate 117 H 91 114 H Respiratory Rate 16 16 18 Blood Pressure 157/126 164/112 148/99 Pulse Oximetry 97 91 99 Oxygen Delivery Method Room Air Room Air Room Air 02/24/25 22:00 02/24/25 22:06 Temperature Pulse Rate 114 H Respiratory Rate 18 Blood Pressure 148/99 Pulse Oximetry 99 Oxygen Delivery Method Room Air Room Air Pt arrived to NPU at 2144 by wheelchair on 96 hour hold ending 03/01/25 @0001. Pt states that he is here because he overdosed on meth today and the meth is causing him to hallucinate. Pt states that he has been hearing people talking to each other and occasionally the voices will tell him to cut his wrists. Pt denies visual hallucinations but during admission assessment he asked this press writer if I could see the man looking at him from the closet. Pt denies si/hi. Pt has extensive drug HX and reports that he has been using drugs for the past 11 years on and off. Pt states that he was clean for about 3 years and then 3 months ago he relapsed on meth and has been using daily since then. A skin assessment was performed and no skin issues were noted. Pt was then dressed into NPU scrubs and was orientated to the unit by this press writer. All questions were answered and support was voiced.
[2025-02-25 03:41] LABS: Amphetamines Screen Urine Positive (Negative); Barbiturates Screen Urine Negative (Negative); Benzodiazepines Screen Urine Positive (Negative); Cocaine Screen Urine Negative (Negative); Opiate Screen Urine Positive (Negative); PCP Screen Urine Negative (Negative); THC Screen Urine Positive (Negative)
[2025-02-25 06:00] VITALS: BP 134/88; PULSE 96; RESP 16; TEMP 36.8; O2SAT 97
[2025-02-25] MEDS: OLANZapine 5 mg ODT PO (11:50)
[2025-02-25 14:00] VITALS: BP 131/87; PULSE 90; RESP 16; TEMP 36.7; O2SAT 98
--- NOTE | 2025-02-25 18:11 | W.PM.NPUH&PS ---
Providers/Chief Complaint Admitting Physician: Feliz Das MD Chief Complaint: mhe HPI NPU History of Present Illness José Manuel Nolasco is a 29 year old male who presented to the emergency department reporting that he had been using methamphetamine over the last 3 days while reporting that he had not slept while endorsing auditory and visual hallucinations. Patient was admitted involuntarily to the neuropsychiatric unit for further diagnosis and treatment. The patient was a poor historian and provided no additional information as he was sedated and difficult to awaken on interview. He had indicated to the emergency department that he had been previously clean off methamphetamine but relapsed over the past few days. Psychiatric history: Unknown although previous records indicate at least 1 inpatient psychiatric hospitalization. Previous psychiatric medications include Zyprexa and Celexa. There appear to be a private prior history of suicide attempt in another state and a history of brief outpatient treatment. Medical history: Generalized epilepsy Substance abuse history: History of methamphetamine abuse. Prior history of opiate use as well. The urine screen is positive for benzodiazepines, opiates, amphetamines, and marijuana. Current medications: Depakote 500 mg twice a day Legal history: Unknown Family psychiatric history: Unknown Social history: See below Excerpt from D/C summary from 11/28/2020 Discharge Diagnosis (1) Drug-induced psychotic disorder: Status: Acute Qualifiers: Complication of substance-induced condition: with hallucinations Qualified Code(s): F19.951 - Other psychoactive substance use, unspecified with psychoactive substance-induced psychotic disorder with hallucinations (2) Polysubstance abuse: Status: Acute (3) Generalized epilepsy: Status: Acute (4) Seasonal allergic rhinitis due to pollen: Status: Chronic (5) Anxiety, generalized: Status: Chronic (6) Depressive disorder: Status: Acute (7) Psychosis: Status: Acute Reason for Visit History of Present Illness José Manuel Nolasco is a 25 year old male who presented to the emergency department with the following report: Chief Complaint: Psychiatric Symptoms Stated Complaint: wants to detox Time Seen by Provider: 11/26/20 16:28 Source: patient and family Mode of arrival: ambulatory History of Present Illness: HPI Narrative: The patient is a 25-year-old male who states that he has been abusing illicit drugs for many years. He uses methamphetamines, abuses prescription opioids. He is feeling bad about it, is tearful and says he would like some help with assistance to quitting. His mother also called 9 said that the patient has auditory hallucinations she says even when he is not using drugs. He denies SI or HI. MD complaint: feels depressed Duration: intermittent Exacerbating factors: drug use Context: recent drug abuse Associated psychiatric symptoms: auditory hallucinations Associated symptoms: Reports auditory hallucinations and depression; Deny visual hallucinations, delusions, homicidal ideation, suicidal ideation or racing thoughts Treatments prior to arrival: none. He was admitted to the neuropsychiatric unit for definitive treatment of those issues. José Manuel presents today reporting that he has 1 previous hospitalization in [place] some years ago and reports that he went to follow-up outpatient maybe 1 or 2 times before leaving the area. He reports having 1 suicide attempt in his past attempting to slit his wrists. He reports he smokes about 1/2 to 1 pack of cigarettes a day, does not drink alcohol, has marijuana sometimes daily and struggles with methamphetamine. He reports he went to a makeshift rehab where a family member/family friend took him in in a remote area and they assisted him in getting clean by not allowing him to leave and providing for him until he got through the rough part. He is not sure whether he had a DUI. He reports he presents off of his medication and wanting to get clean and sober. He reports he has had suicidal thoughts recently and struggles with depression and anxiety. He reports sometimes getting Xanax to help with the anxiety. We discussed concerns about Xanax related to recovery. We discussed the risk benefits and alternatives of restarting Zyprexa which he is certain he was taken before with success as well as starting Prozac as an antidepressant/anxiety medication long-term and he understood and agreed to proceed as is documented in this note. Psychiatric history: As above. Substance abuse history: As above. Family history: He endorses mental health issues on both sides of the family as well as addiction up suddenly but denies any suicide attempts or completions in his family. Developmental history: He denies any issues with his , his mother's with him or delivery. To walk and talk and met his developmental milestones on time, he did not need speech therapy, emotional support or special education classes but did report he did have some assistance with reading after he went off to school. Psychosocial history: He reports his parents were together when he was born and he has 2 younger sisters who are a product of that same union. Neither of his parents have obstruction. He reports his childhood was easy and is on time and sports. He denies emotional, physical or sexual abuse. Highest grade he attained in school was the 11th grade and he never got his GED. He endorses being a heterosexual longest relationship being 3 years. He is , he is never had biological children, is never been in the but does endorse being a Religion. 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 He was a current lives in a house with his mom and one of them. Legal history: He reports being snf about 3 times when is lying about a week. Medical history: He reports a history of epilepsy and has been seen by Dr. Maida Green. Reason for Visit: SI Hospital Course Hospital Course 25-year-old male presented to the emergency department with ongoing, longstanding polysubstance abuse. Most recently using methamphetamines and prescription opioids, reported depressive symptoms and tearful with regards to his ongoing use and need for help. Patient reported recent self-harm behavior in the context of substance use but denied any intent of ending his life. Patient reported some auditory hallucinations in the context of his recent methamphetamine use and was started on olanzapine 10 mg at bedtime after collateral history that the patient has also had some persisting auditory hallucinations when not using substances with concerns for underlying thought disorder. Patient was also started on citalopram 20 mg daily with no reports of any medication side effects. He reported ongoing, intermittent depressive symptoms in the context of his ongoing substance use but denied any depressive symptoms or suicidal ideation at the time of discharge. Patient participate in unit milieu with no reports of any behavioral disturbances. At the time of discharge, patient was not suicidal and did not appear to pose any imminent threat of harm to self or others. Low to moderate risk of harm to self given no current suicidal ideation and no reports of any current psychiatric symptoms although patient's risk may be elevated given recent self-harm behavior in the context of substance use and this risk may be elevated if he continues to abuse substances or alcohol leading to unexpected, impulsive behavior. Risk mitigation included psychiatric hospitalization for observation of return of any suicidal behavior, treating psychiatric symptoms, as well as recommendation to abstain from the use of any substances and alcohol and coordinating for post discharge psychiatric and substance treatment. Patient was able to communicate his understanding of the need to abstain from the use of substances and alcohol as well as the need for compliance with his medication, medication management and substance counseling follow-up in order to further mitigate his risk of harm to self and Meds NPU Home Medications ?Medication ?Instructions ?Recorded ?Confirmed ?Last Taken ?Type ibuprofen 200 mg tablet (Advil) 200 - 400 mg PO PRN PRN 07/16/20 02/25/25 Unknown History pain/headache divalproex 500 mg tablet,delayed 500 mg PO BID@1000,2200 11/26/20 02/25/25 11/26/20 17:00 History release (Depakote) citalopram 20 mg tablet 20 mg PO DAILY@1000 #30 tabs 11/28/20 02/25/25 Unknown Rx olanzapine 10 mg tablet 10 mg PO BEDTIME #30 tabs 11/28/20 02/25/25 Unknown Rx Allergies Allergy/AdvReac Type Severity Reaction Status Date / Time Sulfa (Sulfonamide Allergy ALGY-Hives Verified 11/26/20 16:37 Antibiotics) PFSH NPU PFSH: Medical History (Updated 02/24/25 @ 19:18 by Abdullahi Gilman MD) Seasonal allergic rhinitis due to pollen Anxiety, generalized Epilepsy Surgical History Hx of tonsillectomy Family History (Reviewed 11/26/20 @ 21:35 by Trino Guillaume MD, [facility] [place]) Father Seizure disorder Hypertension Denies family history of Cancer Social History Smoking and tobacco/nicotine status: current every day tobacco/nicotine user Second hand smoke exposure: Yes Alcohol intake: current Alcohol intake frequency: holidays/special occasions only Substance/Drug Use: current Adopted: No Caregiver/support person: No Lives independently: Yes Household members: family Housing: House Marital status: Single Number of children: 0 service: No Current occupational status: unemployed Do you think of yourself as: Straight/Heterosexual Current gender identity: Male Mental Status Exam MSE Comments: This is a adequately nourished well-developed white male with hospital scrubs on with limited grooming and no eye contact. No abnormal movements except for mild psychomotor retardation. He was uncooperative with exam in no acute distress. Speech was absent except for slurred speech and decreased volume. . Mood not endorsed. Affect was dysphoric. Thought process: Was difficult to assess as he was essentially nonverbal. Thought Content: Patient did not endorse suicidal or homicidal ideation. He was fading in and out of consciousness. Attention and concentration were limited and memory appeared reliable but none were formally tested. He is alert and oriented to name only. Insight and judgment are limited, impulse control is impaired. Vitals/I&O/Wt Last Vital Signs Temp 98.0 F 02/25/25 14:00 Pulse 90 02/25/25 14:00 Resp 16 02/25/25 14:00 BP 131/87 02/25/25 14:00 Pulse Ox 98 02/25/25 14:00 O2 Del Method Room Air 02/25/25 06:00 Weight last 48 hrs Weight 72.575 kg Data NPU 02/24/25 18:46 02/24/25 18:46 A&P Assessment and plan (1) Acute psychosis: (2) Polysubstance abuse: Plan 29-year-old patient with a history of a seizure disorder along with polysubstance abuse admitted with reports of auditory and visual hallucinations currently not able to provide any further history positive for opiates benzodiazepines amphetamines and marijuana. #1.? Engage patient in individual milieu and group therapy. #2?? Recommend sober living treatment at the highest level of care to which the patient is willing to commit #3???Restart Depakote as prescribed. #4?? TO-15 minute checks? #5?? Will attempt to gather collateral information PDMP PDMP Reviewed: Not Reviewed Involuntary Hold Information Hold Status: Legal Status: 96 Hour Hold Date/Time Hold Expires: 03/01/2025 @ 0001 96 Hour Hold: 96 Hour Involuntary Admission: No Attestations NPU Medical Necessity Statement*: Inpatient hospitalization is medically necessary and deemed to be the clinically appropriate intervention at this time. Medications will be adjusted and initiated as indicated.? The patient will be hospitalized for at least 2 midnights.? The patient?s likely length of stay is 5-7 days. ? Coding Level of Care Code Acute Code for [facility] Fwd Diagnoses Acute psychosis F23 Polysubstance abuse F19.10
[2025-02-25 19:48] VITALS: BP 113/72; PULSE 108; RESP 16; TEMP 36.7; O2SAT 100
[2025-02-26 06:00] VITALS: BP 110/70; PULSE 90; RESP 16; TEMP 36.7; O2SAT 98
[2025-02-26] MEDS: OLANZapine 5 mg ODT PO ×2 (08:35→17:21)
[2025-02-26] MEDS: nicotine 2 mg Gum BUCCAL ×2 (08:35→17:23)
--- NOTE | 2025-02-26 08:57 | PC.NURSE ---
Morning assessment Patient calm during morning assessment. Patient denies any pain. Patient endorses anxiety. Administered zyprexa 5mg ODT to patient, along with nicotine gum. Patient denies SI, saying not right now . patient said that he would notify staff if this changed.
[2025-02-26] MEDS: hyDROXYzine 25 mg Capsule 50 MG PO ×2 (10:25→20:48)
--- NOTE | 2025-02-26 10:26 | PC.NURSE ---
Patient c/o increased anxiety and requested what he had last time . Upon review, he had taken Zyprexa this morning and was unable to have another dose at this time. I reviewed this with him and asked if he would prefer Vistaril to which he agreed. Pulled from [employer] and upon attempting to scan bracelet, patient states I didn't know I needed it so I took it off. Carmine Harman CNA printed a new bracelet and patient's name and were verified and medications administered as ordered.
[2025-02-26 14:00] VITALS: BP 118/71; PULSE 75; RESP 16; TEMP 36.6; O2SAT 98
--- NOTE | 2025-02-26 17:07 | P.NPUPN_ITS ---
Subjective NPU 2 Subjective: 29-year-old male admitted with recent re lapse on methamphetamine over the past 3 months. The patient had reported that he was feeling a little better today. 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 The patient had reported a past history of psychotic symptoms including hallucinations when using methamphetamine. He reported that he had relapsed recently after nearly 3 years of sobriety prior to this time. He had reported no recent onset of seizures. He had endorsed some increased sadness over having resumed consumption of methamphetamine. 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 Mental Status Exam 2 MSE Comments: This is a adequately nourished well-developed white male with hospital scrubs on with limited grooming and fair eye contact today. No abnormal movements except for moderate psychomotor retardation. He was cooperative and friendly on exam in no acute distress. Speech was productive and normal in regards to rate rhythm and prosody. His mood was described as depressed. His affect was restricted in range and mood congruent. His thought process was linear logical and goal-directed. His thought content revealed no suicidal or homicidal ideation at this time. He did not appear to be responding to internal stimuli. There was no evidence of delusional thinking. He denied any current auditory or visual hallucinations. Insight was fair. Judgment was poor. Impulse control was poor. Recent and remote memory were grossly intact. He was alert and oriented to person, place and time currently. Vitals/I&O/Wt Last Vital Signs Temp 97.8 F 02/26/25 14:00 Pulse 75 02/26/25 14:00 Resp 16 02/26/25 14:00 BP 118/71 02/26/25 14:00 Pulse Ox 98 02/26/25 14:00 O2 Del Method Room Air 02/26/25 06:00 Weight last 48 hrs Weight 72.575 kg Data NPU 02/24/25 18:46 02/24/25 18:46 A&P Assessment and plan (1) Acute psychosis: (2) Polysubstance abuse: Plan 29-year-old patient with a history of a seizure disorder along with polysubstance abuse admitted with reports of auditory and visual hallucinations reporting some improved mood today. #1.? Engage patient in individual milieu and group therapy. #2?? Recommend sober living treatment at the highest level of care to which the patient is willing to commit #3???Restart Depakote as prescribed. Add Additional abilify to help with hallucinations. #4?? TO-15 minute checks? #5?? Will attempt to gather collateral information PDMP PDMP Reviewed: Not Reviewed Involuntary Hold Information 2 Hold Status: Legal Status: 96 Hour Hold Date/Time Hold Expires: 03/01/2025 @ 0001 96 Hour Hold: 96 Hour Involuntary Admission: No Attestations NPU 2 Medical Necessity Statement*: Inpatient hospitalization is medically necessary and deemed to be the clinically appropriate intervention at this time. Medications will be adjusted and initiated as indicated.? The patient?s likely length of stay is 3-4 days. ? Coding Level of Care Code Acute Code for [facility] Fwd Diagnoses Acute psychosis F23 Polysubstance abuse F19.10
[2025-02-26 20:37] VITALS: BP 108/63; PULSE 80; RESP 17; TEMP 36.6; O2SAT 96
[2025-02-26] MEDS: ARIPiprazole 10 mg Tablet 5 MG PO (20:48)
[2025-02-26] MEDS: trazodone 50 mg Tablet PO (20:48)
[2025-02-27 06:00] VITALS: BP 103/68; PULSE 78; RESP 17; O2SAT 97
[2025-02-27] MEDS: nicotine 2 mg Gum BUCCAL (09:49)
[2025-02-27] MEDS: hyDROXYzine 25 mg Capsule 50 MG PO ×2 (12:22→19:56)
[2025-02-27] MEDS: nicotine 4 mg lozenge MUCOUS MEM (12:28)
[2025-02-27 13:47] VITALS: BP 108/70; PULSE 88; RESP 16; TEMP 36.7; O2SAT 98
[2025-02-27] MEDS: OLANZapine 5 mg ODT PO (16:31)
--- NOTE | 2025-02-27 17:18 | P.NPUPN_ITS ---
Subjective NPU 2 Subjective: 29-year-old male history of epilepsy adm itted with recent binging of methamphetamine with complaints of depression and increased paranoia. The patient had minimized having any complaints regarding suicide. He did not report any side effects from his medication. He had stated that he would like to return back to a sober living situation at a place in [place] that he had been to in the past in order to remain sober. The patient had reported feeling more optimistic as he stated that he would likely need to leave his current place of residence due to the presence of continued methamphetamine in the area. Patient had reported some improvement in sleep. He had denied any feelings of hopelessness or worthlessness. Mental Status Exam 2 MSE Comments: This is a adequately nourished well-developed white male with hospital scrubs on with limited grooming and fair eye contact today. No abnormal movements except for moderate psychomotor retardation. He was cooperative and friendly on exam in no acute distress. Speech was productive and normal in regards to rate rhythm and prosody. His mood was described as better. His affect was mildly restricted in range. His thought process was linear, logical, and goal- directed. His thought content revealed no suicidal or homicidal ideation at this time. He did not appear to be responding to internal stimuli. There was no evidence of delusional thinking. He denied any current auditory or visual hallucinations. Insight was fair. Judgment was poor. Impulse control was poor. Recent and remote memory were grossly intact. He was alert and oriented to person, place, and time currently. Vitals/I&O/Wt Last Vital Signs Temp 98.1 F 02/27/25 13:47 Pulse 88 02/27/25 13:47 Resp 16 02/27/25 13:47 BP 108/70 02/27/25 13:47 Pulse Ox 98 02/27/25 13:47 O2 Del Method Room Air 02/27/25 13:47 Data NPU 02/24/25 18:46 02/24/25 18:46 A&P Assessment and plan (1) Acute psychosis: (2) Polysubstance abuse: Plan 29-year-old patient with a history of a seizure disorder along with polysubstance abuse admitted with reports of auditory and visual hallucinations reporting some improved mood today. #1.? Engage patient in individual milieu and group therapy. #2?? Recommend sober living treatment at the highest level of care to which the patient is willing to commit #3???Restart Depakote as prescribed. Continue Abilifiy 5mg daily. #4?? TO-15 minute checks? #5?? Patient appearing better, outpatient substance abuse treatment placement likely helpful. 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 PDMP PDMP Reviewed: Not Reviewed Involuntary Hold Information 2 Hold Status: Legal Status: 96 Hour Hold Date/Time Hold Expires: 03/01/2025 @ 0001 96 Hour Hold: 96 Hour Involuntary Admission: No Attestations NPU 2 Medical Necessity Statement*: Inpatient hospitalization is medically necessary and deemed to be the clinically appropriate intervention at this time. Medications will be adjusted and initiated as indicated.? The patient?s likely length of stay is 2-3 days. ? Coding Level of Care Code Acute Code for [facility] Fwd Diagnoses Acute psychosis F23 Polysubstance abuse F19.10
[2025-02-27] MEDS: ARIPiprazole 10 mg Tablet 5 MG PO (19:56)
[2025-02-27] MEDS: trazodone 50 mg Tablet PO (19:56)
[2025-02-27 20:17] VITALS: BP 120/78; PULSE 90; RESP 17; TEMP 36.6; O2SAT 95
--- NOTE | 2025-02-27 21:09 | PC.NURSE ---
Pt.'s mother called and said pt. stated he was hallucinating. When signee did pt.'s assessment earlier in the evening pt. denied having any visual or auditory hallucinations, but the mother stated pt. had called her and said that there was a large man that was going to kill him tonight. Pt. is currently sitting in the dayroom and pt.'s roommate is also in the dayroom watching TV. The mother thinks the reason he is having hallucinations is because of the new medication that pt. started taking and does not want him to take that medication again. The mother said pt. had called her and was begging her to come and pick him up because he thought he was going to be killed tonight and thought the staff might also be in on this. Signee informed the mother that this information would be passed onto the who should be here in the am. Mother thanked signee.
--- NOTE | 2025-02-27 21:34 | PC.NURSE ---
Pt. was moved [place] the [place] side d/t his request. Pt. thought his roommate was going to attempt to kill him tonight. Pt. is having hallucinations.
[2025-02-28 06:00] VITALS: BP 114/74; PULSE 70; RESP 17; TEMP 36.8; O2SAT 97
[2025-02-28] MEDS: hyDROXYzine 25 mg Capsule 50 MG PO ×3 (13:51→20:38)
[2025-02-28] MEDS: nicotine 2 mg Gum BUCCAL ×2 (13:52→18:18)
[2025-02-28 14:00] VITALS: BP 118/71; PULSE 94; RESP 16; TEMP 36.6; O2SAT 98
--- NOTE | 2025-02-28 14:15 | P.NPUPN_ITS ---
Subjective NPU 2 Subjective: 29-year-old male history of epilepsy adm itted with recent binging of methamphetamine with complaints of depression and increased paranoia. The patient had reported that he continued to be distrustful and endorsed paranoia. He had also endorsed being distracted by his thoughts. At the same time, the patient had reported that he felt that he needed to go home. He had refused to allow the team to make referrals to receive help stating that he would do it himself when he gets home. The patient was provided information regarding his previous hospitalization several years ago at which time he had received medication to manage psychosis. He had stated that he did not take that medication for very long after he was discharged. He had continued to state that he had no interest in resuming methamphetamine use but at the same time was concerned that he would not be able to leave today. Mental Status Exam 2 MSE Comments: This is a adequately nourished well-developed white male with hospital scrubs on with limited grooming and fair eye contact today. No abnormal movements except for moderate psychomotor retardation. He was guarded today. Speech was less productive today. He appeared more guarded. His mood was described as better. His affect was mildly restricted in range. His thought process was perseverative regarding returning home. His thought content revealed no suicidal or homicidal ideation at this time. He DID appear to be responding to internal stimuli. There was evidence of paranoia. Insight was poor. Judgment was poor. Impulse control was poor. Recent and remote memory were grossly intact. He was alert and oriented to person, place, and time currently. Vitals/I&O/Wt Last Vital Signs Temp 98.3 F 02/28/25 06:00 Pulse 70 02/28/25 06:00 Resp 17 02/28/25 06:00 BP 114/74 02/28/25 06:00 Pulse Ox 97 02/28/25 06:00 O2 Del Method Room Air 02/27/25 20:17 Data NPU 02/24/25 18:46 02/24/25 18:46 A&P Assessment and plan (1) Acute psychosis: (2) Polysubstance abuse: Plan 29-year-old patient with a history of a seizure disorder along with polysubstance abuse admitted with reports of auditory and visual hallucinations reporting some improved mood today. #1.? Engage patient in individual milieu and group therapy. #2?? Recommend sober living treatment at the highest level of care to which the patient is willing to commit #3???Restart Depakote as prescribed. Increase abilify to 10mg daily. #4?? TO-15 minute checks? #5?? Patient appearing worse today, placed on extended hold with court hearing pending. PDMP PDMP Reviewed: Not Reviewed Involuntary Hold Information 2 Hold Status: Legal Status: 96 Hour Hold Date/Time Hold Expires: 03/01/2025 @ 0001 96 Hour Hold: 96 Hour Involuntary Admission: No Attestations NPU 2 Medical Necessity Statement*: Inpatient hospitalization is medically necessary and deemed to be the clinically appropriate intervention at this time. Medications will be adjusted and initiated as indicated.? The patient?s likely length of stay is 4-6 days. ? Coding Level of Care Code Acute Code for [facility] Fwd Diagnoses Acute psychosis F23 Polysubstance abuse F19.10
[2025-02-28] MEDS: OLANZapine 5 mg ODT PO (14:58)
[2025-02-28] MEDS: haloperidol 5 mg Tablet PO (16:06)
--- NOTE | 2025-02-28 16:16 | PC.NURSE ---
speaking with pt mother and pt. pt stated that he is use to taking ativan for anxiety when this policy writer sales asked pt who prescribed the medication pt stated no one I self prescribe. pt mother at that time stated at one time he had prescription for ativan for seizures and anxiety. pt then stated that was three years ago and i have alot of extras of them available.
[2025-02-28] MEDS: trazodone 50 mg Tablet PO (20:38)
[2025-02-28] MEDS: ARIPiprazole 10 mg Tablet PO (20:38)
[2025-02-28 21:17] VITALS: BP 119/86; PULSE 63; RESP 17; TEMP 36.8; O2SAT 98
[2025-03-01 06:00] VITALS: BP 111/72; PULSE 70; RESP 16; TEMP 36.7; O2SAT 97
[2025-03-01] MEDS: hyDROXYzine 25 mg Capsule 50 MG PO ×3 (09:51→20:08)
--- NOTE | 2025-03-01 11:09 | PC.NURSE ---
Mother called this am and was saying her son is not psychotic and says the Abilify is causing him problems. Mother states the meth is out of his system and he is not having any hallucinations or irritability anymore.
[2025-03-01] MEDS: OLANZapine 5 mg ODT PO (12:09)
[2025-03-01 14:00] VITALS: BP 111/69; PULSE 73; RESP 16; TEMP 36.3; O2SAT 98
--- NOTE | 2025-03-01 15:06 | P.NPUPN_ITS ---
Subjective NPU 2 Subjective: Patient presented today reporting that he is feeling a little better. He reports that he is not really sure what to make of the medications. He reports that he was psychotic but that he is fairly certain that he came from his use of methamphetamines. We discussed that discontinuing his use will be one of the most significant issues in managing his mental health sequela. However we discussed how the medication might be helping and that we should find a medication that is feeling effective and appropriate for him. Mental Status Exam 2 MSE Comments: This is a adequately nourished well-developed white male with hospital scrubs on with limited grooming and fair eye contact today. No abnormal movements except for moderate psychomotor retardation. He was guarded today. Speech was less productive today. He appeared more guarded. His mood was described as better. His affect was mildly restricted in range. His thought process was perseverative regarding returning home. His thought content revealed no suicidal or homicidal ideation at this time. He DID appear to be responding to internal stimuli. There was evidence of paranoia. Insight was poor. Judgment was poor. Impulse control was poor. Recent and remote memory were grossly intact. He was alert and oriented to person, place, and time currently. Vitals/I&O/Wt Last Vital Signs Temp 97.3 F L 03/01/25 14:00 Pulse 73 03/01/25 14:00 Resp 16 03/01/25 14:00 BP 111/69 03/01/25 14:00 Pulse Ox 98 03/01/25 14:00 O2 Del Method Room Air 03/01/25 14:00 Data NPU 02/24/25 18:46 02/24/25 18:46 A&P Assessment and plan (1) Acute psychosis: (2) Polysubstance abuse: Plan This 29-year-old white male is a long history of mental health and addiction issues with significant genetic loading for those conditions as well as a history of a seizure disorder and polysubstance abuse admitted with reports of auditory and visual hallucinations acknowledging methamphetamine use. 1. Continue current medication including Depakote and now Abilify 10 mg p.o. daily. 2. Continue every 15 minute checks for safety. 3. Encourage individual, group and milieu therapy. 4. Encourage sober living treatment at the highest level of care to which he is willing to commit. 5. Evaluate against the backdrop of the 96-hour hold. 21-day hold hearing on 03/06/2025. 6. Obtain collateral information. PDMP PDMP Reviewed: Not Reviewed Involuntary Hold Information 2 Hold Status: Legal Status: 96 Hour Hold Date/Time Hold Expires: 03/01/2025 @ 0001 96 Hour Hold: 96 Hour Involuntary Admission: No Attestations NPU 2 Medical Necessity Statement*: Inpatient hospitalization is medically necessary and the clinically appropriate intervention at this time. We will monitor/initiate medications and make changes as indicated. Likely length of stay 3-5 days. Coding Level of Care Code Acute Code for Chg Fwd Diagnoses Acute psychosis F23 Polysubstance abuse F19.10
[2025-03-01] MEDS: nicotine 2 mg Gum BUCCAL (18:19)
[2025-03-01] MEDS: ARIPiprazole 10 mg Tablet PO (20:08)
[2025-03-01 21:09] VITALS: BP 113/71; PULSE 70; RESP 16; TEMP 36.7; O2SAT 99
[2025-03-02 06:00] VITALS: RESP 16
[2025-03-02 14:00] VITALS: BP 127/92; PULSE 85; RESP 17; TEMP 36.6; O2SAT 98
--- NOTE | 2025-03-02 14:10 | P.NPUPN_ITS ---
Subjective NPU 2 Subjective: Patient presented today reporting that things are okay. He continues to be quite isolative per staff reports and direct observation only being observed in his room. He was very focused on feeling like the sleep medicine really makes him tired and out of it. We discussed the fact that the only sleep medicine that he is being given is as needed so he does not have to take it. Otherwise he reports that he feels like his strange thoughts are improving. He denied any other side effects to medication. Mental Status Exam 2 MSE Comments: This is a adequately nourished well-developed white male with hospital scrubs on with limited grooming and fair eye contact today. No abnormal movements except for moderate psychomotor retardation. He was guarded today. Speech was less productive today. His mood was described as better. His affect was restricted in range. His thought process was perseverative regarding returning home. His thought content revealed no suicidal or homicidal ideation at this time. He DID appear to be responding to internal stimuli. There was evidence of paranoia. Insight was poor. Judgment was poor. Impulse control was poor. Recent and remote memory were grossly intact. He was alert and oriented to person, place, and time currently. Vitals/I&O/Wt Last Vital Signs Temp 98.0 F 03/01/25 21:09 Pulse 70 03/01/25 21:09 Resp 16 03/02/25 06:00 BP 113/71 03/01/25 21:09 Pulse Ox 99 03/01/25 21:09 O2 Del Method Room Air 03/01/25 14:00 Data NPU 02/24/25 18:46 02/24/25 18:46 A&P Assessment and plan (1) Acute psychosis: (2) Polysubstance abuse: Plan This 29-year-old white male is a long history of mental health and addiction issues with significant genetic loading for those conditions as well as a history of a seizure disorder and polysubstance abuse admitted with reports of auditory and visual hallucinations acknowledging methamphetamine use. 1. Continue current medication including Depakote and now Abilify 10 mg p.o. daily. 2. Continue every 15 minute checks for safety. 3. Encourage individual, group and milieu therapy. 4. Encourage sober living treatment at the highest level of care to which he is willing to commit. 5. Evaluate against the backdrop of the 96-hour hold. 21-day hold hearing on 03/06/2025. 6. Obtain collateral information. PDMP PDMP Reviewed: Not Reviewed Involuntary Hold Information 2 Hold Status: Legal Status: 96 Hour Hold Date/Time Hold Expires: 03/01/2025 @ 0001 96 Hour Hold: 96 Hour Involuntary Admission: No Attestations NPU 2 Medical Necessity Statement*: Inpatient hospitalization is medically necessary and the clinically appropriate intervention at this time. We will monitor/initiate medications and make changes as indicated. Likely length of stay 3-5 days. Coding Level of Care Code Acute Code for Chg Fwd Diagnoses Acute psychosis F23 Polysubstance abuse F19.10
[2025-03-02] MEDS: hyDROXYzine 25 mg Capsule 50 MG PO ×2 (14:29→20:24)
--- NOTE | 2025-03-02 14:30 | PC.NURSE ---
Pt expressed that he doesn't want to take Trazodone at HS, pt feels that it caused him to experience night terrors.
[2025-03-02] MEDS: nicotine 2 mg Gum BUCCAL (14:51)
[2025-03-02] MEDS: OLANZapine 5 mg ODT PO ×2 (15:22→20:24)
[2025-03-02] MEDS: nicotine 4 mg lozenge MUCOUS MEM (17:32)
[2025-03-02] MEDS: ARIPiprazole 10 mg Tablet PO (20:24)
[2025-03-02 21:13] VITALS: BP 118/81; PULSE 53; RESP 18; O2SAT 98
[2025-03-03 06:00] VITALS: BP 112/68; PULSE 63; RESP 17; O2SAT 98
--- NOTE | 2025-03-03 07:56 | P.NPUPN_ITS ---
Subjective NPU 2 Subjective: Patient presented today reporting that he is doing okay. He was having some concerns for movement abnormalities though nothing was noted on physical examination. We did allow him and encouraged him to try as needed Cogentin to see if this could be EPS. Otherwise he reports he was doing better and staff concur as they report less isolative and this which was also noted on direct observation with him being seen by this typewriter repairer outside of bed for the first time. He denied any other concerns or side effects to medication. Mental Status Exam 2 MSE Comments: This is a slender but well-developed white male in hospital scrubs with limited grooming and improving eye contact today. No abnormal movements except for mild to moderate psychomotor retardation in mild distress. Speech continued to be decreased rate and volume but with some improvement and rate and less pauses before question answering. His mood was described as better. His affect was slightly less restricted in range. Thought process was linear and less disorganized. His thought content revealed no suicidal or homicidal ideation at this time. There were no delusions reported but he continued to be somewhat guarded. He denied ongoing auditory or visual hallucinations. Attention and concentration were improving and memory was limited but not more formally tested. He is alert and oriented x 3. Insight and judgment were limited but improving and impulse control was limited. Vitals/I&O/Wt Last Vital Signs Temp 98 F 03/02/25 14:00 Pulse 63 03/03/25 06:00 Resp 17 03/03/25 06:00 BP 112/68 03/03/25 06:00 Pulse Ox 98 03/03/25 06:00 O2 Del Method Room Air 03/01/25 14:00 03/02/25 03/03/25 03/03/25 22:59 06:59 14:59 Intake Total 0 / 0 Balance 0 / 0 Weight last 48 hrs Weight 73.482 kg Data NPU 02/24/25 18:46 02/24/25 18:46 A&P Assessment and plan (1) Acute psychosis: (2) Polysubstance abuse: Plan This 29-year-old white male is a long history of mental health and addiction issues with significant genetic loading for those conditions as well as a history of a seizure disorder and polysubstance abuse admitted with reports of auditory and visual hallucinations acknowledging methamphetamine use. 1. Continue current medication including Depakote and now Abilify 10 mg p.o. daily. 2. Continue every 15 minute checks for safety. 3. Encourage individual, group and milieu therapy. 4. Encourage sober living treatment at the highest level of care to which he is willing to commit. 5. Evaluate against the backdrop of the 96-hour hold. 21-day hold hearing on 03/06/2025. 6. Obtain collateral information. PDMP PDMP Reviewed: Not Reviewed Involuntary Hold Information 2 Hold Status: Legal Status: 96 Hour Hold Date/Time Hold Expires: 03/01/2025 @ 0001 96 Hour Hold: 96 Hour Involuntary Admission: No Attestations NPU 2 Medical Necessity Statement*: Inpatient hospitalization is medically necessary and the clinically appropriate intervention at this time. We will monitor/initiate medications and make changes as indicated. Likely length of stay 3-5 days. Coding Level of Care Code Acute Code for Chg Fwd Diagnoses Acute psychosis F23 Polysubstance abuse F19.10
[2025-03-03] MEDS: OLANZapine 5 mg ODT PO ×2 (12:40→17:32)
[2025-03-03] MEDS: benztropine 1 mg Tablet PO (13:06)
[2025-03-03] MEDS: nicotine 4 mg lozenge MUCOUS MEM (13:06)
[2025-03-03 14:00] VITALS: BP 141/67; PULSE 90; RESP 16; O2SAT 99
--- NOTE | 2025-03-03 17:32 | PC.NURSE ---
Pt stated that he would like to try taking Ambien at Bedtime. Pt states that trazodone gives him night terrors.
[2025-03-03] MEDS: doxepin 10 mg Capsule PO (20:02)
[2025-03-03] MEDS: ARIPiprazole 10 mg Tablet PO (20:02)
[2025-03-03 20:46] VITALS: BP 115/76; PULSE 79; RESP 18; TEMP 36.7; O2SAT 99
[2025-03-04 06:00] VITALS: BP 102/67; PULSE 67; RESP 16; O2SAT 97
[2025-03-04 08:41] VITALS: BP 166/83; PULSE 122; RESP 18; O2SAT 98
[2025-03-04 08:42] LABS: Glucose Point of Care 128 mg/dL (70-110)
--- NOTE | 2025-03-04 08:45 | CTR_ITS ---
PROCEDURE INFORMATION: Exam: CT Head Without Contrast Exam date and time: 03/04/2025 8:48 AM Age: 29 years old Clinical indication: Injury or trauma; Fall; Blunt trauma (contusions or hematomas); Additional info: Seizure and unwitnessed fall TECHNIQUE: Imaging protocol: Computed tomography of the head without contrast. Radiation optimization: All CT scans at this facility use at least one of these dose optimization techniques: automated exposure control; mA and/or kV adjustment per patient size (includes targeted exams where dose is matched to clinical indication); or iterative reconstruction. COMPARISON: No relevant prior studies available. 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 No hemorrhage. Unremarkable white matter. No mass effect. No CT evidence of acute infarct. Otherwise, unremarkable. Cerebral ventricles: No ventriculomegaly. Paranasal sinuses: Visualized sinuses are unremarkable. No fluid levels. Mastoid air cells: Visualized mastoid air cells are well aerated. Auditory system: Clear middle ear cavities bilaterally. Bones: Unremarkable. No acute fracture. Soft tissues: Unremarkable. CT/CT head wo con* [id number] IMPRESSION: No acute intracranial abnormality.
--- NOTE | 2025-03-04 08:53 | CTR_ITS ---
PROCEDURE INFORMATION: Exam: CT Cervical Spine Without Contrast Exam date and time: 03/04/2025 8:52 AM Age: 29 years old Clinical indication: Injury or trauma; Fall; Blunt trauma; Additional info: Unwitnessed fall, seizure TECHNIQUE: Imaging protocol: Computed tomography of the cervical spine without contrast. Radiation optimization: All CT scans at this facility use at least one of these dose optimization techniques: automated exposure control; mA and/or kV adjustment per patient size (includes targeted exams where dose is matched to clinical indication); or iterative reconstruction. COMPARISON: CT head wo con* [id number] 03/04/2025 8:48 AM RADIATION DOSE METRICS: Total DLP (mGy-cm): 168.57 FINDINGS: Bones: No acute fracture. Very mild S shaped curvature. Otherwise, normal alignment. No significant disc bulge or herniation. No severe spinal canal stenosis. No significant neural foraminal narrowing. Lungs: Lung apices are normal. Soft tissues: Unremarkable. CT/CT cervical spin wo con* [id number] IMPRESSION: 1. Very mild S shaped curvature. 2. Otherwise, negative CT of the cervical spine.
--- NOTE | 2025-03-04 08:54 | XR_ITS ---
WS: [id number] Exam: XR knee RT 3V* [id number] Date/Time of Exam: 03/04/2025 8:55 AM Reason For Exam: UNWITNESSED FALL, SEIZURE No acute fracture. The joints are preserved. No joint effusion. Normal soft tissues. XR/XR knee RT 3V* [id number] IMPRESSION: 1. Normal RIGHT knee.
--- NOTE | 2025-03-04 08:54 | XR_ITS ---
WS: [id number] Exam: XR knee LT 3V* [id number] Date/Time of Exam: 03/04/2025 8:55 AM Reason For Exam: UNWITNESSED FALL, SEIZURE No acute fracture. The joint compartments are preserved. No joint effusion. Normal soft tissues. XR/XR knee LT 3V* [id number] IMPRESSION: 1. Negative LEFT knee.
[2025-03-04 09:19] LABS: Basophils % 0.5 %; Eosinophils # 0.2 10^3/uL (0.0-0.8); Eosinophils % 2.4 %; Hematocrit 49.5 % (37-53); Lymphocytes # 2.7 10^3/uL (0.8-4.8); Mean Corpuscular HGB Conc 33.9 g/dL (30-55); Mean Corpuscular Hemoglobin 29.1 pg (27-33); Mean Corpuscular Volume 85.8 fl (82-101); Monocytes # 0.5 10^3/uL (0.2-0.9); Monocytes % 6.7 %; Neutrophils # 4.08 10^3/uL (1.8-7.7); Neutrophils % 53.9 %; Nucleated Red Blood Cells % 0 %; Platelet Count 266 10^3/cmm (157-399); Red Blood Count 5.77 10^6/uL (3.85-5.65); Red Cell Distribution Width 11.7 % (12.1-15.1); White Blood Count 7.58 10^3/uL (3.29-11.43)
[2025-03-04] MEDS: hyDROXYzine 25 mg Capsule 50 MG PO ×2 (09:23→22:13)
[2025-03-04 09:37] LABS: Alanine Aminotransferase 12 U/L (0-41); Albumin Level 4.9 g/dL (3.5-5.2); Alkaline Phosphatase 71 U/L (40-130); Ammonia 122 umol/L (16-60); Anion Gap 23.9 (5-19); Aspartate Amino Transferase 14 U/L (0-40); Blood Urea Nitrogen 12 mg/dL (6-20); Calcium 9.7 mg/dL (8.5-10.5); Carbon Dioxide 20 mmol/L (22-29); Chloride 97 mmol/L (98-107); Creatine Phosphokinase 58 U/L (39-308); Creatinine Clr Calc Pharmacy 131.2764; Globulin 2.3 g/dL (1.3-4.6); Glomerular Filtration Rate 100.5 mL/min (90-130); Glucose 108 mg/dL (65-115); Osmolality Calculated 284 mOsm/kg (285-295); Potassium 3.9 mmol/L (3.5-5.1); Sodium 137 mmol/L (136-145); Total Bilirubin 0.4 mg/dL (0.15-1.2); Total Protein 7.2 g/dL (6.6-8.7)
[2025-03-04 09:41] LABS: Lactate (Lactic Acid level) 9.3 mmol/L (0.5-2.2)
--- NOTE | 2025-03-04 10:04 | PC.NURSE ---
At 0831 a patient in the hallway alerted the nurse that he thought the patient in the neighboring room was having a seizure. This nurse went to assess the patient and found him lying in the floor having a seizure, nurse alerted the other NPU staff to call a rapid response. Nurse assisted patient on to his left side. Seizure activity lasted approximately 1 minute, patient was postictal for a few minutes, during his confusion he stood up against nursing advice, patient was disoriented to time and place, nurses assisted patient to the bed for vitals. Dr. Armijo was at the bedside with rapid response team. Dr. Zaragoza was notified, and new verbal orders given for a consult to Dr. Villafuerte. Dr. Armijo ordered labs, head CT, and bilateral knee xrays. Patient left the floor with warehouse shipping supervisor and security for CT an Xrays, upon return to the unit the patient is alert and oriented to place, was able to remember being in the hospital but not how he got here. Pt stated to nurse that he has a history of epilepsy but has not had a seizure in years. Patient stated that he used to take Depakote but hasn't taken it in several years. Critical lab called to nurse, lactic acid of 9.3, NPU manager of it notified Dr. Armijo, Nurse notified Dr. Zaragoza and Dr. Villafuerte.
--- NOTE | 2025-03-04 10:36 | PC.NURSE ---
Nurse attempted to reach Dr. Villafuerte by phone at 1004 to notify of critical lab values, Dr. Villafuerte returned call at [address] Villafuerte of lactic acid 9.3, no new orders at this time.
[2025-03-04] MEDS: divalproex ER 500 mg Tablet (24H) 1000 MG PO (10:40)
[2025-03-04 11:09] VITALS: BP 142/94; PULSE 95; RESP 16; TEMP 36.9; O2SAT 98
[2025-03-04] MEDS: nicotine 4 mg lozenge MUCOUS MEM (11:10)
[2025-03-04] MEDS: benztropine 1 mg Tablet PO (11:38)
[2025-03-04 12:29] LABS: Bilirubin Urine Negative (Negative); Blood Urine Negative (Negative); Glucose Urine UA Negative (Normal); Ketones Urine Negative (Negative); Leukocyte Esterase Urine Negative (Negative); Nitrate Urine Negative (Negative); Protein Urine Negative (Negative); Urine Appearance Clear (CLEAR); Urine Color Yellow (Yellow); Urobilinogen Urine 0.2 mg/dL (Negative)
--- NOTE | 2025-03-04 12:30 | P.CONIM_ITS ---
Providers/Reason For Consult 2 Consulting Physician/Specialty*: Frase/Hospitalist Reason for Consult*: seizure Requesting Physician: Aleksander Attending Physician: Feliz Das MD Primary Care Provider: None History of Present Illness History of Present Illness José Manuel Nolasco is a 29 year old male who presented to the emergency room on February 25 via EMS with significant hallucinations, auditory and visual. He had been using methamphetamine for several days prior to presenting and had not been sleeping. Urine drug screen at presentation was positive for benzodiazepines, opioids, amphetamines and marijuana. Looks like plan had been to start him on Depakote at admission. Unclear if he was unwilling to take it initially. He was given some Abilify. He had been slowly improving and today was actually much more alert and oriented without similar degree of hallucinations. He did however describe feeling funny and subsequently had a witnessed generalized tonic-clonic seizure. Another patient initially saw him, alerting [facility] staff. Seizure lasted approximately 1 minute with a subsequent postictal state. Mr. Nolasco has a history of seizures with generalized epilepsy previously managed with Depakote. He has been off of it for some time. Rapid response was called and workup ensued. Primary abnormalities noted are increase in ammonia level and elevation in lactic acid both of which I believe are secondary to seizure and should be temporary. Additionally has an elevated anion gap secondary to this. Patient is able to provide history and I also spoke with Dr. Zaragoza. Hospitalist have been consulted to assist in management of seizures. Review of Systems 2 General: Reports: Other (ROS as per HPI or as noted here) Musc: Reports: other (Knee discomfort improved) Medications/Allergies Home Medications ?Medication ?Instructions ?Recorded ?Confirmed ?Last Taken ?Type ibuprofen 200 mg tablet (Advil) 200 - 400 mg PO PRN NV N 07/16/20 02/25/25 Unknown History pain/headache citalopram 20 mg tablet 20 mg PO DAILY@1000 #30 tabs 11/28/20 02/25/25 Unknown Rx olanzapine 10 mg tablet 10 mg PO BEDTIME #30 tabs 02/25/25 Unknown Rx Allergies Allergy/AdvReac Type Severity Reaction Status Date / Time Sulfa (Sulfonamide Allergy ALGY-Hives Verified 11/26/20 16:37 Antibiotics) Current Medications Generic Name Dose Route Start Last Admin Trade Name Freq PRN Reason Stop Dose Admin Aripiprazole 10 mg 02/28/25 21:00 03/03/25 20:02 Aripiprazole 10 Mg Tablet PO 10 mg 2100 DENIS Administration Benztropine Mesylate 1 mg 02/24/25 21:45 03/04/25 11:38 Benztropine 1 Mg Tablet PO 1 mg BID PRN Administration Mild Extrapyramidal symptoms Doxepin HCl 10 mg 03/03/25 21:00 03/03/25 20:02 Doxepin 10 Mg Capsule PO 10 mg BEDTIME DENIS Administration Haloperidol 5 mg 02/24/25 21:45 02/28/25 16:06 Haloperidol 5 Mg Tablet PO 5 mg Q4H PRN Administration AGITATION Hydroxyzine Pamoate 50 mg 02/24/25 21:45 03/04/25 09:23 Hydroxyzine 25 Mg Capsule PO 50 mg Q6H PRN Administration ANXIETY Nicotine Polacrilex 2 mg 02/24/25 21:45 03/02/25 14:51 Nicotine 2 Mg Gum BUCCAL 2 mg Q2H PRN Administration NICOTINE WITHDRAWAL Nicotine Polacrilex 4 mg 02/24/25 22:00 03/04/25 11:10 Nicotine 4 Mg Lozenge MUCOUS MEM 4 mg Q2H PRN Administration NICOTINE CRAVINGS Olanzapine 5 mg 02/24/25 21:45 03/03/25 17:32 Olanzapine 5 Mg Odt PO 5 mg Q4H PRN Administration Agitation/Psychosis PFSH Acute 2 PFSH: Medical History (Updated 03/04/25 @ 12:41 by Angelica Villafuerte MD) Depressive disorder Seasonal allergic rhinitis due to pollen Anxiety, generalized Epilepsy Surgical History Hx of tonsillectomy Family History Father Seizure disorder Hypertension Denies family history of Cancer Social History (Updated 03/04/25 @ 13:18 by Angelica Villafuerte MD) Smoking and tobacco/nicotine status: current every day tobacco/nicotine user Quit status (tobacco/nicotine): considering quitting Second hand smoke exposure: Yes Alcohol intake: current Alcohol intake frequency: holidays/special occasions only Substance/Drug Use: current Adopted: No Caregiver/support person: No Lives independently: Yes Household members: family Housing: House Marital status: Single Number of children: 0 service: No Current occupational status: unemployed Do you think of yourself as: Straight/Heterosexual Current gender identity: Male Vitals/I&O/Wt Last Vital Signs Temp 98.5 F 03/04/25 11:09 Pulse 95 03/04/25 11:09 Resp 16 03/04/25 11:09 BP 142/94 03/04/25 11:09 Pulse Ox 98 03/04/25 11:09 O2 Del Method Room Air 03/04/25 11:09 Weight last 48 hrs Weight 73.482 kg Physical Exam 2 Narrative: Patient is seen in the day room. Initially with eyes closed but open quickly when name is called. Alert and oriented to person, place and situation. Extraocular movements are intact. Pupils are reactive. Face is symmetric. Speech is clear. Regular rhythm and rate. Lungs are clear. Moves all extremities without any abnormal movements noted. Data 03/04/25 09:10 03/04/25 09:10 Other Labs: Radiology Impressions Head CT 03/04/25 08:45 IMPRESSION: No acute intracranial abnormality. Cervical Spine CT 03/04/25 08:53 IMPRESSION: 1. Very mild S shaped curvature. 2. Otherwise, negative CT of the cervical spine. Knee X-Ray 03/04/25 08:54 IMPRESSION: 1. Normal RIGHT knee. Laboratory Results WBC 7.58 10^3/uL (3.29-11.43) 03/04/25 09:10 RBC 5.77 10^6/uL (3.85-5.65) H 03/04/25 09:10 Hgb 16.80 g/dL (11.27-16.99) 03/04/25 09:10 Hct 49.5 % (37-53) 03/04/25 09:10 MCV 85.8 fl (82-101) 03/04/25 09:10 MCH 29.1 pg (27-33) 03/04/25 09:10 MCHC 33.9 g/dL (30-55) 03/04/25 09:10 RDW 11.7 % (12.1-15.1) L 03/04/25 09:10 Plt Count 266 10^3/cmm (157-399) 03/04/25 09:10 MPV 9.0 fL (7.4-10.4) 03/04/25 09:10 Neut % (Auto) 53.9 % 03/04/25 09:10 Lymph % (Auto) 36.0 % 03/04/25 09:10 [place] % (Auto) 6.7 % 03/04/25 09:10 Eos % (Auto) 2.4 % 03/04/25 09:10 Baso % (Auto) 0.5 % 03/04/25 09:10 Neut # (Auto) 4.08 10^3/uL (1.8-7.7) 03/04/25 09:10 Lymph # (Auto) 2.7 10^3/uL (0.8-4.8) 03/04/25 09:10 [place] # (Auto) 0.5 10^3/uL (0.2-0.9) 03/04/25 09:10 Eos # (Auto) 0.2 10^3/uL (0.0-0.8) 03/04/25 09:10 Baso # (Auto) 0.0 10^3/uL (0.0-0.1) 03/04/25 09:10 Nucleated RBC % (auto) 0 % 03/04/25 09:10 Nucleated RBCs # 0.0 /100WBC 03/04/25 09:10 Sodium 137 mmol/L (136-145) 03/04/25 09:10 Potassium 3.9 mmol/L (3.5-5.1) 03/04/25 09:10 Chloride 97 mmol/L (98-107) L 03/04/25 09:10 Carbon Dioxide 20 mmol/L (22-29) L 03/04/25 09:10 Anion Gap 23.9 (5-19) H 03/04/25 09:10 BUN 12 mg/dL (6-20) 03/04/25 09:10 Creatinine 0.9 mg/dL (0.7-1.2) 03/04/25 09:10 GFR Calculation 100.5 mL/min (90-130) 03/04/25 09:10 Glucose 108 mg/dL (65-115) 03/04/25 09:10 POC Glucose 128 mg/dL (70-110) H 03/04/25 08:37 Calculated Osmolality 284 mOsm/kg (285-295) L 03/04/25 09:10 Lactate 9.3 mmol/L (0.5-2.2) H* 03/04/25 09:10 Calcium 9.7 mg/dL (8.5-10.5) 03/04/25 09:10 Total Bilirubin 0.4 mg/dL (0.15-1.2) 03/04/25 09:10 AST 14 U/L (0-40) 03/04/25 09:10 ALT 12 U/L (0-41) 03/04/25 09:10 Alkaline Phosphatase 71 U/L (40-130) 03/04/25 09:10 Ammonia 122 umol/L (16-60) H 03/04/25 09:10 Creatine Kinase 58 U/L (39-308) 03/04/25 09:10 Total Protein 7.2 g/dL (6.6-8.7) 03/04/25 09:10 Albumin 4.9 g/dL (3.5-5.2) 03/04/25 09:10 Globulin 2.3 g/dL (1.3-4.6) 03/04/25 09:10 Urine Color Yellow (Yellow) 03/04/25 12:12 Urine Appearance Clear (CLEAR) 03/04/25 12:12 Urine pH 7.0 (5-7) 03/04/25 12:12 Ur Specific [place] 1.010 (1.005-1.030) 03/04/25 12:12 Urine Protein Negative (Negative) 03/04/25 12:12 Urine Glucose (UA) Negative (Normal) 03/04/25 12:12 Urine Ketones Negative (Negative) 03/04/25 12:12 Urine Blood Negative (Negative) 03/04/25 12:12 Urine Nitrate Negative (Negative) 03/04/25 12:12 Urine Bilirubin Negative (Negative) 03/04/25 12:12 Urine Urobilinogen 0.2 mg/dL (Negative) 03/04/25 12:12 Ur Leukocyte Esterase Negative (Negative) 03/04/25 12:12 Urine RBC 0-2 /hpf (0-2) 03/04/25 12:12 Urine WBC 0-5 /hpf (0-5) 03/04/25 12:12 Ur Squamous Epith Cells 0-5 /hpf (0-5) 03/04/25 12:12 Amorphous Sediment Not Reportable 03/04/25 12:12 Urine Bacteria None seen /hpf (NONE) 03/04/25 12:12 Hyaline Casts 1.21 /lpf 03/04/25 12:12 Salicylates < 0.3 mg/dL (3-10) L 02/24/25 18:46 Urine Opiates Screen Positive ng/mL (Negative) H 02/25/25 02:45 Acetaminophen < 5.0 ug/mL (10-30) L 02/24/25 18:46 Ur Barbiturates Screen Negative ng/mL (Negative) 02/25/25 02:45 Ur Phencyclidine Scrn Negative ng/mL (Negative) 02/25/25 02:45 Ur Amphetamines Screen Positive ng/mL (Negative) H 02/25/25 02:45 U Benzodiazepines Scrn Positive ng/mL (Negative) H 02/25/25 02:45 Urine Cocaine Screen Negative ng/mL (Negative) 02/25/25 02:45 U Marijuana (THC) Screen Positive ng/mL (Negative) H 02/25/25 02:45 Ethyl Alcohol < 10 mg/dL (0-10) 02/24/25 18:46 A&P Assessment and plan (1) Acute psychosis: Presenting complaint with audio and visual hallucinations - Management as per psychiatry - Monitor sedation with addition of depakote to abilify and doxepin (2) Generalized epilepsy: Known diagnosis. Review of records indicates that at least 1 prior time when he presented after seizure activity had similar presentation of several days substance use associated with lack of sleep. Was on Depakote in the past. Today he received 1000 mg of extended release Depakote with plan to continue same dosing nightly. - Agree with Depakote dosing as ordered - Will need level checked, ordered for prior to tomorrows dose - Has baseline LFTs, CBC; will check coags - After DC will need followup CMP, CBC in a few weeks along with depakote level Plan Recheck lactic acid Recheck ammonia level Encourage oral fluids (water) Will follow Thank you for consultation PDMP PDMP Reviewed: Not Reviewed Consult Attestations 2 Medical Necessity Statement: as per attending Diagnoses Acute psychosis F23 Generalized epilepsy G40.309
[2025-03-04 12:35] LABS: Add Urine Microscopic? YES; Bacteria Urine None Seen /hpf; Hyaline Casts Urine 1.21 /lpf; RBC Urine 0-2 /hpf (0-2); Squamous Epithelial Cell Urine 0-5 /hpf (0-5); WBC Urine 0-5 /hpf (0-5)
[2025-03-04 12:44] LABS: Add Urine Culture? No
[2025-03-04 13:51] LABS: Partial Thromboplastin Time 23.7 SECONDS (23.9-36.7)
[2025-03-04 13:52] LABS: INR 0.94 (0.8-1.2)
--- NOTE | 2025-03-04 13:52 | P.NPUPN_ITS ---
Subjective NPU 2 Subjective: Patient presented today reporting that he is feeling all right but is feeling lethargic. We discussed the witnessed grand mal seizure that he had earlier today and discussed the risks, benefits and alternatives of reinstating his Depakote that he had been taking before for seizure disorder. At 1 point we spoke with mother who was concerned that the Abilify had some role in his seizure. We discussed the fact that this pattern had occurred before the last time he was on a methamphetamine cat and that likely his seizure is related to his overuse of methamphetamine and him having a history of seizures prior to methamphetamine use. Mental Status Exam 2 MSE Comments: This is a slender but well-developed white male in hospital scrubs with limited grooming and improving eye contact today. No abnormal movements except for mild to moderate psychomotor retardation in mild distress. Speech continued to be decreased rate and volume but with some improvement and rate and less pauses before question answering. His mood was described as better. His affect was slightly less restricted in range. Thought process was linear and less disorganized. His thought content revealed no suicidal or homicidal ideation at this time. There were no delusions reported but he continued to be somewhat guarded. He denied ongoing auditory or visual hallucinations. Attention and concentration were improving and memory was limited but not more formally tested. He is alert and oriented x 3. Insight and judgment were limited but improving and impulse control was limited. Vitals/I&O/Wt Last Vital Signs Temp 98.5 F 03/04/25 11:09 Pulse 95 03/04/25 11:09 Resp 16 03/04/25 11:09 BP 142/94 03/04/25 11:09 Pulse Ox 98 03/04/25 11:09 O2 Del Method Room Air 03/04/25 11:09 Weight last 48 hrs Weight 73.482 kg Data NPU 03/04/25 09:10 03/04/25 09:10 A&P Assessment and plan (1) Acute psychosis: (2) Polysubstance abuse: Plan This 29-year-old white male is a long history of mental health and addiction issues with significant genetic loading for those conditions as well as a history of a seizure disorder and polysubstance abuse admitted with reports of auditory and visual hallucinations acknowledging methamphetamine use. 1. Initiate Depakote 1000 mg p.o. daily and consider discontinuing Abilify. 2. Continue every 15 minute checks for safety. 3. Encourage individual, group and milieu therapy. 4. Encourage sober living treatment at the highest level of care to which he is willing to commit. 5. Evaluate against the backdrop of the 96-hour hold. 21-day hold hearing on 03/06/2025. 6. Obtain collateral information. 7. Appreciate hospitalist consult in relation to the seizure. PDMP PDMP Reviewed: Not Reviewed Involuntary Hold Information 2 Hold Status: Legal Status: 96 Hour Hold Date/Time Hold Expires: 03/01/2025 @ 0001 96 Hour Hold: 96 Hour Involuntary Admission: No Attestations NPU 2 Medical Necessity Statement*: Inpatient hospitalization is medically necessary and the clinically appropriate intervention at this time. We will monitor/initiate medications and make changes as indicated. Likely length of stay 3-5 days. Coding Level of Care Code Acute Code for Chg Fwd Diagnoses Acute psychosis F23 Polysubstance abuse F19.10
[2025-03-04 14:00] VITALS: BP 125/90; PULSE 72; RESP 16; TEMP 36.8; O2SAT 100
[2025-03-04] MEDS: OLANZapine 5 mg ODT PO (14:10)
[2025-03-04 14:21] LABS: Lactate (Lactic Acid level) 1.3 mmol/L (0.5-2.2)
[2025-03-04 21:11] VITALS: BP 151/88; PULSE 63; RESP 16; TEMP 37.1; O2SAT 99
[2025-03-04] MEDS: doxepin 10 mg Capsule PO (22:13)
[2025-03-04] MEDS: ARIPiprazole 10 mg Tablet PO (22:13)
[2025-03-05 06:00] VITALS: BP 124/82; PULSE 82; RESP 16; TEMP 36.3; O2SAT 97
[2025-03-05] MEDS: OLANZapine 5 mg ODT PO (08:44)
[2025-03-05] MEDS: nicotine 4 mg lozenge MUCOUS MEM ×2 (09:10→17:27)
[2025-03-05] MEDS: blistex lip oint 7 gm Tube 1 APPLIC TOPICAL (12:07)
[2025-03-05] MEDS: hyDROXYzine 25 mg Capsule 50 MG PO ×2 (12:12→19:42)
[2025-03-05 14:00] VITALS: BP 124/80; PULSE 78; RESP 16; TEMP 36.6; O2SAT 98
--- NOTE | 2025-03-05 14:15 | PC.NURSE ---
[address] by the tumbler dyeing machine operator's deputy. 1152 Pt arrived back on the unit from court.
--- NOTE | 2025-03-05 16:02 | P.NPUPN_ITS ---
Subjective NPU 2 Subjective: Patient presented today reporting that he is doing better. He reported that he is going to go to a rehab but wants to go home first we had a significant discussion about how likely imparts great risk because people who do not go directly to rehab tend to not go to rehab at all. We discussed concerns about his seizures and knows not being treated adequately. We had the 21-day hold hearing and he was continued on the 21-day hold and he was clear that there were no hard feelings. We discussed the treatment team just wanting his best outcomes. We discussed the risks benefits and alternatives of him taking the Zyprexa which he feels helps and not taking the Abilify and he understood and agreed to proceed as is documented in this note. Mental Status Exam 2 MSE Comments: This is a slender but well-developed white male in hospital scrubs with limited grooming and improving eye contact today. No abnormal movements except for mild psychomotor retardation in mild distress. Speech continued to be decreased rate and volume but with some improvement and rate and less pauses before question answering. His mood was described as better. His affect was slightly less restricted in range. Thought process was linear and less disorganized. His thought content revealed no suicidal or homicidal ideation at this time. There were no delusions reported but he continued to be somewhat guarded. He denied ongoing auditory or visual hallucinations. Attention and concentration were improving and memory was limited but not more formally tested. He is alert and oriented x 3. Insight and judgment were limited but improving and impulse control was limited. Vitals/I&O/Wt Last Vital Signs Temp 98 F 03/05/25 14:00 Pulse 78 03/05/25 14:00 Resp 16 03/05/25 14:00 BP 124/80 03/05/25 14:00 Pulse Ox 98 03/05/25 14:00 O2 Del Method Room Air 03/05/25 14:00 Data NPU 03/04/25 09:10 03/05/25 20:07 A&P Assessment and plan (1) Acute psychosis: (2) Polysubstance abuse: Plan This 29-year-old white male is a long history of mental health and addiction issues with significant genetic loading for those conditions as well as a history of a seizure disorder and polysubstance abuse admitted with reports of auditory and visual hallucinations acknowledging methamphetamine use. 1. Initiate Depakote 1000 mg p.o. daily and consider discontinuing Abilify. 2. Continue every 15 minute checks for safety. 3. Encourage individual, group and milieu therapy. 4. Encourage sober living treatment at the highest level of care to which he is willing to commit. 5. Evaluate against the backdrop of the 96-hour hold. 21-day hold hearing today and put on hold 03/06/2025. 6. Obtain collateral information. 7. Appreciate hospitalist consult in relation to the seizure. PDMP PDMP Reviewed: Not Reviewed Involuntary Hold Information 2 Hold Status: Legal Status: 96 Hour Hold Date/Time Hold Expires: 03/26/2025 96 Hour Hold: 96 Hour Involuntary Admission: No Attestations NPU 2 Medical Necessity Statement*: Inpatient hospitalization is medically necessary and the clinically appropriate intervention at this time. We will monitor/initiate medications and make changes as indicated. Likely length of stay 3-5 days. Coding Level of Care Code Acute Code for Chg Fwd Diagnoses Acute psychosis F23 Polysubstance abuse F19.10
[2025-03-05] MEDS: benztropine 1 mg Tablet PO (18:18)
--- NOTE | 2025-03-05 18:19 | PC.NURSE ---
Pt stated that he would like to increase his dose of zyprexa, currently just taking this med as a prn, pt would like to take daily if that is a good fit for him.
[2025-03-05] MEDS: ARIPiprazole 10 mg Tablet PO (19:42)
[2025-03-05] MEDS: doxepin 10 mg Capsule PO (19:42)
[2025-03-05 19:57] VITALS: BP 137/90; PULSE 115; RESP 18; TEMP 36.6; O2SAT 96
[2025-03-05 20:29] LABS: Ammonia 27 umol/L (16-60)
[2025-03-05] MEDS: divalproex ER 500 mg Tablet (24H) 1000 MG PO (20:29)
[2025-03-05 20:35] LABS: Valproic Acid Level 23.7 ug/mL (50-100)
[2025-03-05 20:36] LABS: Alanine Aminotransferase 12 U/L (0-41); Albumin Level 4.7 g/dL (3.5-5.2); Alkaline Phosphatase 67 U/L (40-130); Aspartate Amino Transferase 13 U/L (0-40); Blood Urea Nitrogen 15 mg/dL (6-20); Calcium 9.6 mg/dL (8.5-10.5); Carbon Dioxide 29 mmol/L (22-29); Chloride 99 mmol/L (98-107); Globulin 2.3 g/dL (1.3-4.6); Glomerular Filtration Rate 115.1 mL/min (90-130); Glucose 86 mg/dL (65-115); Osmolality Calculated 288 mOsm/kg (285-295); Sodium 139 mmol/L (136-145); Total Bilirubin 0.3 mg/dL (0.15-1.2)
[2025-03-06 06:00] VITALS: BP 116/80; PULSE 84; RESP 18; TEMP 36.9; O2SAT 98
[2025-03-06] MEDS: nicotine 4 mg lozenge MUCOUS MEM ×4 (08:49→21:38)
[2025-03-06] MEDS: OLANZapine 5 mg ODT PO ×2 (08:49→20:54)
[2025-03-06 14:00] VITALS: BP 144/95; PULSE 91; RESP 16; TEMP 36.7; O2SAT 98
--- NOTE | 2025-03-06 15:16 | P.NPUPN_ITS ---
Subjective NPU 2 Subjective: Patient presented today reporting that he is doing okay. He reports that he is looking at different sober living options and is now actively making calls and congruence with the social work team. He is hopeful that once he gets a place that he will be considered ready to go so he does not have to spend as much time here on the unit. He has had no additional seizure activity. He denies any side effects of the medication. Mental Status Exam 2 MSE Comments: This is a slender but well-developed white male in hospital scrubs with limited grooming and improving eye contact today. No abnormal movements except for mild psychomotor retardation in mild distress. Speech continued to be decreased rate and volume but with some improvement and rate get a. His mood was described as better. His affect was slightly less restricted in range. Thought process was linear and less disorganized. His thought content revealed no suicidal or homicidal ideation at this time. There were no delusions reported but he continued to be somewhat guarded. He denied ongoing auditory or visual hallucinations. Attention and concentration were improving and memory was limited but not more formally tested. He is alert and oriented x 3. Insight and judgment were limited but improving and impulse control was limited. Vitals/I&O/Wt Last Vital Signs Temp 98.5 F 03/06/25 06:00 Pulse 84 03/06/25 06:00 Resp 18 03/06/25 06:00 BP 116/80 03/06/25 06:00 Pulse Ox 98 03/06/25 06:00 O2 Del Method Room Air 03/06/25 06:00 Data NPU 03/04/25 09:10 03/05/25 20:07 A&P Assessment and plan (1) Acute psychosis: (2) Polysubstance abuse: Plan This 29-year-old white male is a long history of mental health and addiction issues with significant genetic loading for those conditions as well as a history of a seizure disorder and polysubstance abuse admitted with reports of auditory and visual hallucinations acknowledging methamphetamine use. 1. Initiated Depakote 1000 mg p.o. daily and consider discontinuing Abilify. He has been taking Zyprexa as needed. 2. Continue every 15 minute checks for safety. 3. Encourage individual, group and milieu therapy. 4. Encourage sober living treatment at the highest level of care to which he is willing to commit. 5. Evaluate against the backdrop of the 96-hour hold. 21-day hold hearing today and put on hold 03/06/2025. 6. Obtain collateral information. 7. Appreciate hospitalist consult in relation to the seizure. PDMP PDMP Reviewed: Not Reviewed Involuntary Hold Information 2 Hold Status: Legal Status: 96 Hour Hold Date/Time Hold Expires: 03/26/2025 96 Hour Hold: 96 Hour Involuntary Admission: No Attestations NPU 2 Medical Necessity Statement*: Inpatient hospitalization is medically necessary and the clinically appropriate intervention at this time. We will monitor/initiate medications and make changes as indicated. Likely length of stay 2-4 days. Coding Level of Care Code Acute Code for Chg Fwd Diagnoses Acute psychosis F23 Polysubstance abuse F19.10
[2025-03-06 19:28] VITALS: BP 134/99; PULSE 86; RESP 18; TEMP 36.6; O2SAT 96
[2025-03-06] MEDS: divalproex ER 500 mg Tablet (24H) 1000 MG PO (20:53)
[2025-03-06] MEDS: ARIPiprazole 10 mg Tablet PO (20:54)
[2025-03-06] MEDS: hyDROXYzine 25 mg Capsule 50 MG PO (20:54)
[2025-03-06] MEDS: doxepin 10 mg Capsule PO (20:54)
[2025-03-07 06:00] VITALS: BP 115/78; PULSE 76; RESP 18; TEMP 36.6; O2SAT 96
[2025-03-07] MEDS: OLANZapine 5 mg ODT PO ×2 (08:15→17:57)
[2025-03-07] MEDS: nicotine 4 mg lozenge MUCOUS MEM (08:43)
[2025-03-07 09:40] LABS: Basophils % 0.6 %; Eosinophils # 0.3 10^3/uL (0.0-0.8); Eosinophils % 4.9 %; Hematocrit 46.5 % (37-53); Lymphocytes # 2.2 10^3/uL (0.8-4.8); Lymphocytes % 32.1 %; Mean Corpuscular HGB Conc 32.9 g/dL (30-55); Mean Corpuscular Hemoglobin 29.3 pg (27-33); Mean Corpuscular Volume 88.9 fl (82-101); Mean Platelet Volume 9.2 fL (7.4-10.4); Monocytes # 0.7 10^3/uL (0.2-0.9); Monocytes % 9.6 %; Neutrophils # 3.57 10^3/uL (1.8-7.7); Neutrophils % 52.4 %; Nucleated Red Blood Cells % 0 %; Platelet Count 219 10^3/cmm (157-399); Red Blood Count 5.23 10^6/uL (3.85-5.65); Red Cell Distribution Width 11.7 % (12.1-15.1)
[2025-03-07 10:01] LABS: Alanine Aminotransferase 10 U/L (0-41); Albumin Level 4.6 g/dL (3.5-5.2); Alkaline Phosphatase 65 U/L (40-130); Anion Gap 13.8 (5-19); Aspartate Amino Transferase 15 U/L (0-40); Blood Urea Nitrogen 8 mg/dL (6-20); Calcium 9.8 mg/dL (8.5-10.5); Carbon Dioxide 29 mmol/L (22-29); Chloride 103 mmol/L (98-107); Globulin 2.3 g/dL (1.3-4.6); Glomerular Filtration Rate 134.3 mL/min (90-130); Glucose 74 mg/dL (65-115); Magnesium 2.1 mg/dL (1.7-2.3); Osmolality Calculated 289 mOsm/kg (285-295); Potassium 4.8 mmol/L (3.5-5.1); Sodium 141 mmol/L (136-145); Total Bilirubin 0.2 mg/dL (0.15-1.2); Total Protein 6.9 g/dL (6.6-8.7)
[2025-03-07] MEDS: benztropine 1 mg Tablet PO (10:36)
--- NOTE | 2025-03-07 11:43 | P.PN_ITS ---
Subjective 2 Subjective: Seen this morning and n.p.o. Patient has been seizure-free. He states he has had a history of seizures in the past and used to be on Depakote. Depakote has not been restarted. Depakote level 10.0. He is to follow with Dr. Green. I encouraged him to follow-up with her again after discharge. Patient agreeable. Review of systems negative. He has no other complaints at this time. Medicine will sign off. Recall as needed. We will continue to follow chart peripherally and will be available to revisit patient if needed. Continue Depakote thousand at bedtime daily. Recommend neurology follow-up after discharge. Seizure precautions, refrain from driving. Would likely need EEG outpatient. Generally appears well, denies any pain shortness of breath at this time Neurological: Nonfocal. Will review labs today once they are available. Rest of management as per primary. Vitals/I&O/Wt Last Vital Signs Temp 97.8 F 03/07/25 06:00 Pulse 76 03/07/25 06:00 Resp 18 03/07/25 06:00 BP 115/78 03/07/25 06:00 Pulse Ox 96 03/07/25 06:00 O2 Del Method Room Air 03/07/25 06:00 03/06/25 03/07/25 03/07/25 22:59 06:59 14:59 Intake Total 1080 / 1080 Balance 1080 / 1080 Data 03/07/25 09:18 03/07/25 09:18 A&P PDMP PDMP Reviewed: Not Reviewed Attestations 2 Medical Necessity Statement*: Defer to primary team.
[2025-03-07] MEDS: nicotine 2 mg Gum BUCCAL (12:24)
--- NOTE | 2025-03-07 12:36 | PC.NURSE ---
Pt came to nurses station during 1000 group requesting agustín. States I am twitching while doing a twisting motion with his back. I pulled the pt oneydajuan after checking with his nurse on [place]. Pt states that he will do this twitching motion before he has a seizure. This nurse verified with Dr. Zaragoza that pt is a seizure pt and he confirmed this. Seizure precaution has been ordered and will have aid on North side place mats at pt bedside.
[2025-03-07 14:00] VITALS: BP 116/75; PULSE 66; RESP 18; TEMP 36.5; O2SAT 96
[2025-03-07] MEDS: hyDROXYzine 25 mg Capsule 50 MG PO ×2 (15:31→21:28)
--- NOTE | 2025-03-07 17:19 | P.NPUPN_ITS ---
Subjective NPU 2 Subjective: Patient presented today reporting that he is doing fine. He reports that he has been working on some options for rehab along with the social work team. We agreed we would talk to the social work team in the morning when we meet as a full team and determine what options exist and what seems to be in his best interest. He reports that a program he identified will allow he will discharge headache privileges and look for employment within a month and so he is hopeful that that will be a more productive program for him to engage in. We discussed discharging once we identified that he had a bed at 1 of these programs for sober living. He denied any side effects to the medication. Mental Status Exam 2 MSE Comments: This is a slender but well-developed white male in hospital scrubs with limited grooming and improving eye contact today. No abnormal movements except for mild psychomotor retardation in mild distress. Speech continued to be decreased rate and volume but with some improvement and rate get a. His mood was described as better. His affect was slightly less restricted in range. Thought process was linear and less disorganized. His thought content revealed no suicidal or homicidal ideation at this time. There were no delusions reported but he continued to be somewhat guarded. He denied ongoing auditory or visual hallucinations. Attention and concentration were improving and memory was limited but not more formally tested. He is alert and oriented x 3. Insight and judgment were limited but improving and impulse control was limited. Vitals/I&O/Wt Last Vital Signs Temp 97.7 F 03/07/25 14:00 Pulse 66 03/07/25 14:00 Resp 18 03/07/25 14:00 BP 116/75 03/07/25 14:00 Pulse Ox 96 03/07/25 14:00 O2 Del Method Room Air 03/07/25 14:00 03/07/25 03/07/25 03/07/25 06:59 14:59 22:59 Intake Total 1680 / 1680 Balance 1680 / 1680 Data NPU 03/07/25 09:18 03/07/25 09:18 A&P Assessment and plan (1) Acute psychosis: (2) Polysubstance abuse: Plan This 29-year-old white male is a long history of mental health and addiction issues with significant genetic loading for those conditions as well as a history of a seizure disorder and polysubstance abuse admitted with reports of auditory and visual hallucinations acknowledging methamphetamine use. 1. Initiated Depakote 1000 mg p.o. daily and consider discontinuing Abilify. He has been taking Zyprexa as needed. 2. Continue every 15 minute checks for safety. 3. Encourage individual, group and milieu therapy. 4. Encourage sober living treatment at the highest level of care to which he is willing to commit. 5. Evaluate against the backdrop of the 96-hour hold. 21-day hold hearing today and put on hold 03/06/2025. 6. Obtain collateral information. 7. Appreciate hospitalist consult in relation to the seizure. PDMP PDMP Reviewed: Not Reviewed Involuntary Hold Information 2 Hold Status: Legal Status: 96 Hour Hold Date/Time Hold Expires: 03/26/2025 96 Hour Hold: 96 Hour Involuntary Admission: No Attestations NPU 2 Medical Necessity Statement*: Inpatient hospitalization is medically necessary and the clinically appropriate intervention at this time. We will monitor/initiate medications and make changes as indicated. Likely length of stay 1-4 days. Coding Level of Care Code Acute Code for [facility] Fwd Diagnoses Acute psychosis F23 Polysubstance abuse F19.10
[2025-03-07 21:07] VITALS: BP 156/96; PULSE 86; RESP 17; TEMP 36.4; O2SAT 99
[2025-03-07] MEDS: doxepin 10 mg Capsule PO (21:24)
[2025-03-07] MEDS: divalproex ER 500 mg Tablet (24H) 1000 MG PO (21:24)
[2025-03-07] MEDS: ARIPiprazole 10 mg Tablet PO (21:24)
[2025-03-08 06:00] VITALS: BP 114/79; PULSE 91; RESP 20; TEMP 36.4; O2SAT 97
[2025-03-08] MEDS: OLANZapine 5 mg ODT PO (08:57)
[2025-03-08] MEDS: nicotine 4 mg lozenge MUCOUS MEM ×2 (08:58→14:48)
--- NOTE | 2025-03-08 09:00 | PC.NURSE ---
pt requesting agustín yanez to go home on.
[2025-03-08] MEDS: benztropine 1 mg Tablet PO (10:01)
[2025-03-08 13:52] VITALS: BP 133/97; PULSE 92; RESP 16; TEMP 36.6; O2SAT 100
[2025-03-08] MEDS: hyDROXYzine 25 mg Capsule 50 MG PO (14:17)
--- NOTE | 2025-03-08 15:21 | P.NPUDS_ITS ---
Diagnoses at Discharge Discharge Diagnosis (1) Acute psychosis: Status: Acute (2) Polysubstance abuse: Status: Inactive Reason for Visit Reason for Visit: mhe Brief History: History of Present Illness José Manuel Nolasco is a 29 year old male who presented to the emergency department reporting that he had been using methamphetamine over the last 3 days while reporting that he had not slept while endorsing auditory and visual hallucinations. Patient was admitted involuntarily to the neuropsychiatric unit for further diagnosis and treatment. The patient was a poor historian and provided no additional information as he was sedated and difficult to awaken on interview. He had indicated to the emergency department that he had been previously clean off methamphetamine but relapsed over the past few days. Psychiatric history: Unknown although previous records indicate at least 1 inpatient psychiatric hospitalization. Previous psychiatric medications include Zyprexa and Celexa. There appear to be a private prior history of suicide attempt in another state and a history of brief outpatient treatment. Medical history: Generalized epilepsy Substance abuse history: History of methamphetamine abuse. Prior history of opiate use as well. The urine screen is positive for benzodiazepines, opiates, amphetamines, and marijuana. Current medications: Depakote 500 mg twice a day Legal history: Unknown Family psychiatric history: Unknown Social history: See below Excerpt from D/C summary from 11/28/2020 Discharge Diagnosis (1) Drug-induced psychotic disorder: Status: Acute Qualifiers: Complication of substance-induced condition: with hallucinations Qualified Code(s): F19.951 - Other psychoactive substance use, unspecified with psychoactive substance-induced psychotic disorder with hallucinations (2) Polysubstance abuse: Status: Acute (3) Generalized epilepsy: Status: Acute (4) Seasonal allergic rhinitis due to po llen: Status: Chronic (5) Anxiety, generalized: Status: Chronic (6) Depressive disorder: Status: Acute (7) Psychosis: Status: Acute Reason for Visit History of Present Illness José Manuel Nolasco is a 25 year old male who presented to the emergency department with the following report: Chief Complaint: Psychiatric Symptoms Stated Complaint: wants to detox Time Seen by Provider: 11/26/20 16:28 Source: patient and family Mode of arrival: ambulatory History of Present Illness: HPI Narrative: The patient is a 25-year-old male who states that he has been abusing illicit drugs for many years. He uses methamphetamines, abuses prescription opioids. He is feeling bad about it, is tearful and says he would like some help with assistance to quitting. His mother also called 9 said that the patient has auditory hallucinations she says even when he is not using drugs. He denies SI or HI. complaint: feels depressed Duration: intermittent Exacerbating factors: drug use Context: recent drug abuse Associated psychiatric symptoms: auditory hallucinations Associated symptoms: Reports auditory hallucinations and depression; Deny visual hallucinations, delusions, homicidal ideation, suicidal ideation or racing thoughts Treatments prior to arrival: none. He was admitted to the neuropsychiatric unit for definitive treatment of those issues. José Manuel presents today reporting that he has 1 previous hospitalization in [place] some years ago and reports that he went to follow-up outpatient maybe 1 or 2 times before leaving the area. He reports having 1 suicide attempt in his past attempting to slit his wrists. He reports he smokes about 1/2 to 1 pack of cigarettes a day, does not drink alcohol, has marijuana sometimes daily and struggles with methamphetamine. He reports he went to a makeshift rehab where a family member/family friend took him in in a remote area and they assisted him in getting clean by not allowing him to leave and providing for him until he got through the rough part. He is not sure whether he had a DUI. He reports he presents off of his medication and wanting to get clean and sober. He reports he has had suicidal thoughts recently and struggles with depression and anxiety. He reports sometimes getting Xanax to help with the anxiety. We discussed concerns about Xanax related to recovery. We discussed the risk benefits and alternatives of restarting Zyprexa which he is certain he was taken before with success as well as starting Prozac as an antidepressant/anxiety medication long-term and he understood and agreed to proceed as is documented in this note. Psychiatric history: As above. Substance abuse history: As above. Family history: He endorses mental health issues on both sides of the family as well as addiction up suddenly but denies any suicide attempts or completions in his family. Developmental history: He denies any issues with his , his mother's with him or delivery. To walk and talk and met his developmental milestones on time, he did not need speech therapy, emotional support or special education classes but did report he did have some assistance with reading after he went off to school. Psychosocial history: He reports his parents were together when he was born and he has 2 younger sisters who are a product of that same union. Neither of his parents have obstruction. He reports his childhood was easy and is on time and sports. He denies emotional, physical or sexual abuse. Highest grade he attained in school was the 11th grade and he never got his GED. He endorses being a heterosexual longest relationship being 3 years. He is , he is never had biological children, is never been in the but does endorse being a [employer]-Is[employer]. 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 He was a current lives in a house with his mom and one of them. Legal history: He reports being halfway about 3 times when is lying about a week. Medical history: He reports a history of epilepsy and has been seen by Dr. Maida Green. Reason for Visit: Hospital Course Hospital Course 25-year-old male presented to the emerge ncy department with ongoing, longstanding polysubstance abuse. Most recently using methamphetamines and prescription opioids, reported depressive symptoms and tearful with regards to his ongoing use and need for help. Patient reported recent self-harm behavior in the context of substance use but denied any intent of ending his life. Patient reported some auditory hallucinations in the context of his recent methamphetamine use and was started on olanzapine 10 mg at bedtime after collateral history that the patient has also had some persisting auditory hallucinations when not using substances with concerns for underlying thought disorder. Patient was also started on citalopram 20 mg daily with no reports of any medication side effects. He reported ongoing, intermittent depressive symptoms in the context of his ongoing substance use but denied any depressive symptoms or suicidal ideation at the time of discharge. Patient participate in unit milieu with no reports of any behavioral disturbances. At the time of discharge, patient was not suicidal and did not appear to pose any imminent threat of harm to self or others. Low to moderate risk of harm to self given no current suicidal ideation and no reports of any current psychiatric symptoms although patient's risk may be elevated given recent self-harm behavior in the context of substance use and this risk may be elevated if he continues to abuse substances or alcohol leading to unexpected, impulsive behavior. Risk mitigation included psychiatric hospitalization for observation of return of any suicidal behavior, treating psychiatric symptoms, as well as recommendation to abstain from the use of any substances and alcohol and coordinating for post discharge psychiatric and substance treatment. Patient was able to communicate his understanding of the need to abstain from the use of substances and alcohol as well as the need for compliance with his medication, medication management and substance counseling follow-up in order to further mitigate his risk of harm to self and Hospital Course Hospital Course He slowly acclimated to the individual, group and milieu therapies provided. He presented with significant psychosis and relapse on multiple drugs given his history of polysubstance dependence with methamphetamines opiates alcohol benzodiazepines all being issues at different times. He had done a 14 or 15 months program and had some success for some time prior to relapsing again. He did have a history of seizure disorder and had been off of his seizure medications and did have a grand mal seizure during the stay. He was seen by the hospitalist and those things were explored and he was restarted on Depakote ER 1000 mg which had been his treating dose prior. He was also placed on Abilify 10 mg at discharge and was utilizing Zyprexa for breakthrough symptoms. He was also given Cogentin and doxepin to help with the EPS and insomnia respectively. He was on a 96-hour hold followed by 21-day hold. He was able to take those medications with a good response after some adjustment period and demonstrated significant improvement during the stay. He worked with the social work team for appropriate outpatient resources and follow-ups. They were able to also assist him in finding a sober living facility to which he was discharged. He was able to contract for safety outside of the hospital prior to discharge. During the hospitalization, the patient had routine laboratory studies which were within normal limits except for a few outliers.? Additionally, there was a general medical evaluation which was also within normal limits and revealed no new acute processes or issues except those mentioned above. At the time of discharge, he denied lethality or psychosis, and his psychosis was resolving. Mood and anxiety were well managed.? The patient endorsed a plan to avoid all drugs of abuse and follow up with the aftercare recommendations of the treatment team.? The patient was evaluated and deemed to be absent credible lethality and had achieved the maximum benefit from an inpatient hospita lization, and so was discharged Involuntary Hold Information Hold Status: Legal Status: 96 Hour Hold Date/Time Hold Expires: 03/26/2025 96 Hour Hold: 96 Hour Involuntary Admission: No Mental Status Exam MSE Comments: This is a slender but well-developed white male in hospital scrubs with limited grooming and improving eye contact today. No abnormal movements except for mild psychomotor retardation in mild distress. Speech continued to be decreased rate and volume but with some improvement in rate. His mood was described as better. His affect was slightly less restricted in range. Thought process was linear and less disorganized. His thought content revealed no suicidal or homicidal ideation at this time. There were no delusions reported but he continued to be somewhat guarded. He denied ongoing auditory or visual hallucinations. Attention and concentration were improving and memory was limited but not more formally tested. He is alert and oriented x 3. Insight and judgment were limited but improving and impulse control was limited. Discharge Data Studies Completed and Pending: Completed Studies During Hospitalization Category Date Time Status CT cervical spin wo con* [id number] Rout ine Cat Scan 03/04/25 08:[address] head wo con* [id number] Stat Cat Scan 03/04/25 08:45 Completed XR knee LT 3V* 73 [id number] Routine Exams 03/04/25 08:54 Completed XR knee RT 3V* 73 [id number] Routine Exams 03/04/25 08:54 Completed Radiology Impressions Head CT 03/04/25 08:45 IMPRESSION: No acute intracranial abnormality. Cervical Spine CT 03/04/25 08:53 IMPRESSION: 1. Very mild S shaped curvature. 2. Otherwise, negative CT of the cervi benitez spine. Knee X-Ray 03/04/25 08:54 IMPRESSION: 1. Normal RIGHT knee. Laboratory Results WBC 6.80 10^3/uL (3.2 9-11.43) 03/07/25 09:18 RBC 5.23 10^6/uL (3.8 5-5.65) 03/07/25 09:18 Hgb 15.30 g/dL (11.27 -16.99) 03/07/25 09:18 Hct 46.5 % (37-53) 03/07/25 09:18 MCV 88.9 fl (82-101) 03/07/25 09:18 MCH 29.3 pg (27-33) 03/07/25 09:18 MCHC 32.9 g/dL (30-55) 03/07/25 09:18 RDW 11.7 % (12.1-15.1 ) L 03/07/25 09:18 Plt Count 219 10^3/cmm (157 -399) 03/07/25 09:18 MPV 9.2 fL (7.4-10.4) 03/07/25 09:18 Neut % (Auto) 52.4 % 03/07/25 09:18 Lymph % (Auto) 32.1 % 03/07/25 09:18 [place] % (Auto) 9.6 % 03/07/25 09:18 Eos % (Auto) 4.9 % 03/07/25 09:18 Baso % (Auto) 0.6 % 03/07/25 09:18 Neut # (Auto) 3.57 10^3/uL (1.8 -7.7) 03/07/25 09:18 Lymph # (Auto) 2.2 10^3/uL (0.8- 4.8) 03/07/25 09:18 [place] # (Auto) 0.7 10^3/uL (0.2- 0.9) 03/07/25 09:18 Eos # (Auto) 0.3 10^3/uL (0.0- 0.8) 03/07/25 09:18 Baso # (Auto) 0.0 10^3/uL (0.0- 0.1) 03/07/25 09:18 Nucleated RBC % (a uto) 0 % 03/07/25 09:18 Nucleated RBCs # 0.0 /100WBC 03/07/25 09:18 PT 13.20 SECONDS (12 .1-14.9) 03/04/25 09:10 INR 0.94 (0.8-1.2) 03/04/25 09:10 APTT 23.7 SECONDS (23. 9-36.7) L 03/04/25 09:10 Sodium 141 mmol/L (136-1 45) 03/07/25 09:18 Potassium 4.8 mmol/L (3.5-5 .1) 03/07/25 09:18 Chloride 103 mmol/L (98-10 7) 03/07/25 09:18 Carbon Dioxide 29 mmol/L (22-29) 03/07/25 09:18 Anion Gap 13.8 (5-19) 03/07/25 09:18 BUN 8 mg/dL (6-20) 03/07/25 09:18 Creatinine 0.7 mg/dL (0.7-1. 2) 03/07/25 09:18 GFR Calculation 134.3 mL/min (90- 130) H 03/07/25 09:18 Glucose 74 mg/dL (65-115) 03/07/25 09:18 POC Glucose 128 mg/dL (70-110 ) H 03/04/25 08:37 Calculated Osmolal ity 289 mOsm/kg (285- 295) 03/07/25 09:18 Lactate 1.3 mmol/L (0.5-2 .2) 03/04/25 13:58 Calcium 9.8 mg/dL (8.5-10 .5) 03/07/25 09:18 Magnesium 2.1 mg/dL (1.7-2. 3) 03/07/25 09:18 Total Bilirubin 0.2 mg/dL (0.15-1 .2) 03/07/25 09:18 AST 15 U/L (0-40) 03/07/25 09:18 ALT 10 U/L (0-41) 03/07/25 09:18 Alkaline Phosphata se 65 U/L (40-130) 03/07/25 09:18 Ammonia 27 umol/L (16-60) 03/05/25 20:07 Creatine Kinase 58 U/L (39-308) 03/04/25 09:10 Total Protein 6.9 g/dL (6.6-8.7 ) 03/07/25 09:18 Albumin 4.6 g/dL (3.5-5.2 ) 03/07/25 09:18 Globulin 2.3 g/dL (1.3-4.6 ) 03/07/25 09:18 Urine Color Yellow (Yellow) 03/04/25 12:12 Urine Appearance Clear (CLEAR) 03/04/25 12:12 Urine pH 7.0 (5-7) 03/04/25 12:12 Ur Specific Gravit y 1.010 (1.005-1.0 30) 03/04/25 12:12 Urine Protein Negative (Negati ve) 03/04/25 12:12 Urine Glucose (UA) Negative (Normal ) 03/04/25 12:12 Urine Ketones Negative (Negati ve) 03/04/25 12:12 Urine Blood Negative (Negati ve) 03/04/25 12:12 Urine Nitrate Negative (Negati ve) 03/04/25 12:12 Urine Bilirubin Negative (Negati ve) 03/04/25 12:12 Urine Urobilinogen 0.2 mg/dL (Negati ve) 03/04/25 12:12 Ur Leukocyte Genet ase Negative (Negati ve) 03/04/25 12:12 Urine RBC 0-2 /hpf (0-2) 03/04/25 12:12 Urine WBC 0-5 /hpf (0-5) 03/04/25 12:12 Ur Squamous Epith Cells 0-5 /hpf (0-5) 03/04/25 12:12 Amorphous Sediment Not Reportable 03/04/25 12:12 Urine Bacteria None seen /hpf (N ONE) 03/04/25 12:12 Hyaline Casts 1.21 /lpf 03/04/25 12:12 Salicylates < 0.3 mg/dL (3-10 ) L 02/24/25 18:46 Urine Opiates Scre en Positive ng/mL (N egative) H 02/25/25 02:45 Acetaminophen < 5.0 ug/mL (10-3 0) L 02/24/25 18:46 Ur Barbiturates Sc reen Negative ng/mL (N egative) 02/25/25 02:45 Valproic Acid 10.0 ug/mL (50-10 0) L 03/06/25 15:23 Ur Phencyclidine S crn Negative ng/mL (N egative) 02/25/25 02:45 Ur Amphetamines Sc reen Positive ng/mL (N egative) H 02/25/25 02:45 U Benzodiazepines Scrn Positive ng/mL (N egative) H 02/25/25 02:45 Urine Cocaine Scre en Negative ng/mL (N egative) 02/25/25 02:45 U Marijuana (THC) Screen Positive ng/mL (N egative) H 02/25/25 02:45 Ethyl Alcohol < 10 mg/dL (0-10) 02/24/25 18:46 Vitals: Last Vital Signs Temp 97.9 F 03/08/25 13:52 Pulse 92 03/08/25 13:52 Resp 16 03/08/25 13:52 BP 133/97 03/08/25 13:52 Pulse Ox 100 03/08/25 13:52 O2 Del Method Room Air 03/08/25 13:52 Discharge Plan Discharge Patient Disposition: Home Condition: Stable Prescriptions: New doxepin 10 mg Capsule 10 mg PO BEDTIME 30 Days Qty: 30 1RF divalproex 500 mg Tablet Extended Release 24 Hr 1,000 mg PO BEDTIME 30 Days Qty: 60 1RF benztropine 1 mg Tablet 1 mg PO TID PRN (Reason: Mild Extrapyramidal symptoms) 30 Days Qty: 90 1RF olanzapine 5 mg Tablet,Disintegrating 5 mg PO Q4H PRN (Reason: Agitation/Psychosis) 30 Days Qty: 60 1RF Rx Instructions: Max 2 times a day hydroxyzine pamoate 25 mg Capsule 50 mg PO Q6H PRN (Reason: Anxiety) 30 Days Qty: 120 1RF aripiprazole 10 mg Tablet 10 mg PO 2100 30 Days Qty: 30 1RF Continued ibuprofen [Advil] 200 mg Tablet 200 - 400 mg PO PRN PRN (Reason: pain/headache) Discontinued citalopram 20 mg Tablet 20 mg PO DAILY@1000 Qty: 30 1RF olanzapine 10 mg Tablet 10 mg PO BEDTIME Qty: 30 1RF Discharge Orders: Discharge Order (Routine); Ordered 03/08/25 Ordered By: Bassam Zaragoza Referrals: [facility] [Other] - 03/08/25 [facility] [Other] - 03/19/25 12:30 pm (Initial assessment for serrvices with Heather Isabel) Discharge Diet: Regular Discharge Activity: Resume usual activity Patient Instructions: Hydroxyzine (By mouth) (Vistaril), Aripiprazole (By mouth) (Abilify, Abilifelizabeth Discmelt), Depression (DC), Help Prevent Suicide (DC), Opioid Safety Discharge Attestations NPU Time Spent in Discharge Care*: less than 30 min Specific Discharge Activities: Specific discharge activities: educating patient, discussing with caseworker intake/social workers/dc planners, documenting/other paperwork and evaluating patient/reviewing data Status at Discharge: Cognitive status at discharge: cognitively intact , Behavioral status at discharge: cooperative , Coding Level of Care Code Acute Code for [facility] Fwd Diagnoses Acute psychosis F23 Polysubstance abuse F19.10
[2025-03-08 15:27] VITALS: BP 133/97; PULSE 92; RESP 16; TEMP 36.6; O2SAT 100
== END 2025-03-08 16:40 | disposition home or self-care (01) | DRG 897 ==
LOC: ER 19:55 → NP 21:13
PROVIDERS: Family Medicine; Hospitalist; Internal Medicine; Admitting Provider Psychiatry & Neurology Psychiatry; Emergency Provider Emergency Medicine; Visit Provider Psychiatry & Neurology Psychiatry
DX: F15.159 Other stimulant abuse with stimulant-induced psychotic disorder, unspecified (principal); F19.10 Other psychoactive substance abuse, uncomplicated; F10.90 Alcohol use, unspecified, uncomplicated; F17.210 Nicotine dependence, cigarettes, uncomplicated; Z79.891 Long term (current) use of opiate analgesic; G40.409 Other generalized epilepsy and epileptic syndromes, not intractable, without status epilepticus; T42.6X6A Underdosing of other antiepileptic and sedative-hypnotic drugs, initial encounter; Z91.128 Patient's intentional underdosing of medication regimen for other reason; F41.1 Generalized anxiety disorder
CPT/HCPCS: 36415; 36416; 70450; 72125; 73562; 80048; 80053; 80164; 80306; 80307; 81001; 82140; 82550; 82962; 83605; 83735; 85025; 85610; 85730; 97150; 97165; 99285; J9999